=== PATIENT | female | born 1945 | race Caucasian/White ===

== ENCOUNTER 2017-04-09 18:37 | Inpatient (IN) | payer OTHER ==
[~2017-04-09] VITALS: Ht 154.9 cm; Wt 63.3 kg
[2017-04-09] MEDS ORDERED: NITROGLYCERIN 2% 1 GM OINT PKT TD STA (18:53)
[2017-04-09] MEDS ORDERED: ONDANSETRON 4 MG INJ IV STA (18:56)
[2017-04-09] MEDS ORDERED: NITROGLYCERIN (SL) 0.4 MG TAB SL PRN (19:00)
[2017-04-09 19:52] LABS: ADD SCAN DIFF NO
[2017-04-09 20:01] LABS: BASOPHILS % 0.2 % (0.0-2.0); EOSINOPHILS % 0.2 % (0.0-7.0); HEMATOCRIT 34.2 % (37.0-47.0); HEMOGLOBIN 11.3 g/dl (12.0-16.0); LYMPHOCYTES # 1.5 10^3/ul (0.8-2.9); LYMPHOCYTES % 16.1 % (15.0-51.0); MEAN CORPUSCULAR HEMOGLOBIN 27.5 pg (29.0-33.0); MEAN CORPUSCULAR VOLUME 83.2 fl (82.0-101.0); MEAN PLATELET VOLUME 10.1 fl (7.4-10.4); MONOCYTE # 0.7 10^3/ul (0.3-0.9); MONOCYTES % 7.1 % (0.0-11.0); NEUTROPHIL # 7.1 10^3/ul (1.6-7.5); NEUTROPHILS % 76.2 % (39.0-77.0); PLATELET COUNT 347 10^3/UL (140-415); RED BLOOD COUNT 4.11 10^6/ul (4.20-5.40); WHITE BLOOD COUNT 9.4 10^3/ul (4.8-10.8)
[2017-04-09 20:16] LABS: INR 0.99; PROTIME 13.1 Sec (12.2-14.2)
[2017-04-09 20:17] LABS: PARTIAL THROMBOPLASTIN TIME 31.5 Sec (25.0-35.0)
[2017-04-09 20:19] LABS: ANION GAP 14 (8-16); BLOOD UREA NITROGEN 16 mg/dl (7-20); CALCIUM 9.3 mg/dl (8.4-10.2); CARBON DIOXIDE 25 mmol/L (21-31); CHLORIDE 94 mmol/L (97-110); CREATININE 0.61 mg/dl (0.44-1.00); GLUCOSE 126 mg/dl (70-220); POTASSIUM 3.9 mmol/L (3.5-5.1); SODIUM 129 mmol/L (135-144)
[2017-04-09] MEDS ORDERED: morphine 4 MG/ML VIAL IV STA ×2 (20:20→23:55)
[2017-04-09 20:25] VITALS: TEMP 96.9
[2017-04-09] MEDS ORDERED: ONDANSETRON 4 MG INJ IV PRN (20:30)
[2017-04-09] MEDS ORDERED: ACETAMINOPHEN 325 MG TAB PO PRN ×2 (20:30→21:00)
[2017-04-09 20:31] LABS: TROPONIN-I < 0.012 ng/ml (0.00-0.12)
--- NOTE | 2017-04-09 20:37 | ERA ---
ER Documentation Chief Complaint Date/Time DATE: 04/09/17 TIME: 20:34 Chief Complaint CHEST PAIN STARTED 45MIN AGO; NITRO X 2 AND ASPIRIN 162 MG GIVEN BY EMS. HPI Patient is a 71-year-old female with coronary disease and hypertension who presents with chest pain. The patient was brought in by ambulance. She was given aspirin nitroglycerin by paramedics. The chest pain started today and is right-sided. She also mentioned that she was spitting up some blood. Upon review of old medical records this is the patient's first visit to the emergency department. ROS All systems reviewed and are negative except as per history of present illness. Allergies Allergies: Coded Allergies: No Known Allergy (Unverified , 04/09/17) PMhx/Soc Hx Neurological Disorder: No Hx Respiratory Disorders: No Hx Cardiac Disorders: Yes (HTN) Hx Psychiatric Problems: No Hx Miscellaneous Medical Probl: No Hx Alcohol Use: No Hx Substance Use: No Hx Tobacco Use: No Smoking Status: Unknown if ever smoked FmHx Family History: No diabetes Physical Exam Vitals Vital Signs Date Time Temp Pulse Resp B/P Pulse Ox O2 Delivery O2 Flow Rate FiO2 04/09/17 20:25 96.9 91 9 171/83 99 Nasal Cannula 2.0 04/09/17 19:10 Nasal Cannula 2 04/09/17 18:48 96.9 94 17 186/90 97 Physical Exam Const: Moderate distress secondary to pain Head: Atraumatic Eyes: Normal Conjunctiva ENT: Normal External Ears, Nose and Mouth. Neck: Full range of motion..~ No meningismus. Resp: Clear to auscultation bilaterally Cardio: Regular rate and rhythm, no murmurs Abd: Soft, non tender, non distended. Normal bowel sounds Skin: No petechiae or rashes Back: No midline or flank tenderness Ext: No cyanosis, or edema Neur: Awake and alert Psych: Normal Mood and Affect Result Diagram: 04/09/17193404/09/171934 Results 24 hrs Laboratory Tests Test 04/09/17 19:35 White Blood Count 9.410^3/ul Red Blood Count 4.1110^6/ul Hemoglobin 11.3g/dl Hematocrit 34.2% Mean Corpuscular Volume 83.2fl Mean Corpuscular Hemoglobin 27.5pg Mean Corpuscular Hemoglobin Concent 33.0g/dl Red Cell Distribution Width 14.0% Platelet Count 53153^3/UL Mean Platelet Volume 10.1fl Neutrophils % 76.2% Lymphocytes % 16.1% Monocytes % 7.1% Eosinophils % 0.2% Basophils % 0.2% Nucleated Red Blood Cells % 0.0/100WBC Neutrophils # 7.110^3/ul Lymphocytes # 1.510^3/ul Monocytes # 0.710^3/ul Eosinophils # 0.010^3/ul Basophils # 0.010^3/ul Nucleated Red Blood Cells # 0.010^3/ul Prothrombin Time 13.1Sec Prothrombin Time Ratio 1.0 INR International Normalized Ratio 0.99 Activated Partial Thromboplast Time 31.5Sec Sodium Level 129mmol/L Potassium Level 3.9mmol/L Chloride Level 94mmol/L Carbon Dioxide Level 25mmol/L Anion Gap 14 Blood Urea Nitrogen 16mg/dl Creatinine 0.61mg/dl Glucose Level 126mg/dl Calcium Level 9.3mg/dl Troponin I < 0.012ng/ml Current Medications Medications (Trade) Dose Ordered Sig/Daniella Route PRN Reason Start Time Stop Time Status Last Admin Dose Admin Nitroglycerin (Nitroglycerin 2% Oint) 1 inch ONCE STAT TD 04/09/17 18:53 04/09/17 18:55 DC 04/09/17 19:11 Nitroglycerin (Nitroglycerin (Sl Tab) 0.4 Mg) 1 tab Q5M UP TO 3 DOSES PRN SL CHEST PAIN 04/09/17 19:00 04/09/17 20:26 Ondansetron HCl (Zofran Inj) 4 mg ONCE STAT IV 04/09/17 18:56 04/09/17 18:58 DC 04/09/17 19:11 Morphine Sulfate (morphine) 4 mg ONCE STAT IV 04/09/17 20:20 04/09/17 20:21 DC 04/09/17 20:26 Ondansetron HCl (Zofran Inj) 4 mg ER BRIDGE PRN IV NAUSEA AND/OR VOMITING 04/09/17 20:30 04/10/17 20:29 Acetaminophen (Tylenol Tab) 650 mg ER BRIDGE PRN PO MILD PAIN/FEVER 04/09/17 20:30 04/10/17 20:29 Procedures/MDM EKG #1 read by me: Rate/Rhythm: Right bundle branch block with flipped T waves at a rate of 96 Intervals: Prolonged QTC of 507 Impression: Right bundle branch block with flipped T waves EKG #2 read by me: Rate/Rhythm: Right bundle branch block with flipped T waves at a rate of 91 Intervals: Prolonged QTC of 504 Impression: Right bundle branch block with flipped T waves Chest X-ray 1V Interpreted by me: Soft Tissue: No acute abnormalities Bones: No acute abnormalities Mediastinum/Cardiac Silhouette/Lungs: No acute abnormalities Patient is a 71-year-old female with cardiac morbidities who presents with chest pain. The patient was given aspirin and nitroglycerin as well as morphine. The patient has a negative troponin. Chest x-ray shows no obvious pneumonia or pneumothorax. At this time I doubt pulmonary embolism or aortic dissection. However given her age and comorbidities I am concerned for acute coronary syndrome. She has anemia and hyponatremia. She will be admitted to a telemetry bed under the care of Dr. Kramer from the panel team as the patient has preferred [employer] insurance. Departure Diagnosis: Primary Impression: Anemia Qualified Code: D64.9 - Anemia, unspecified type Additional Impressions: Hyponatremia Chest pain Qualified Code: R07.9 - Chest pain, unspecified type Condition: KELLY Gray MD Apr 09, 2017 20:36
[2017-04-09] MEDS ORDERED: BISACODYL (EC) 5 MG TAB PO PRN (21:00)
[2017-04-09] MEDS ORDERED: NACL 0.9% 3 ML SYG IV SCH (21:00)
[2017-04-09] MEDS ORDERED: DOCUSATE SODIUM 100 MG CAP PO PRN (21:00)
[2017-04-09] MEDS ORDERED: FAMOTIDINE 20 MG INJ IV SCH (21:00)
--- NOTE | 2017-04-09 21:00 | RADRPT ---
PROCEDURE: XR Chest. CLINICAL INDICATION: Chest pain. TECHNIQUE: Single frontal view of the chest. COMPARISON: None. FINDINGS: Cardiomegaly. Atherosclerotic calcifications in the thoracic aorta. Mild patchy air space disease at lung bases. The lungs are otherwise clear. No signs of pleural fluid or pneumothorax are seen. Th e osseous structures and soft tissues are unremarkable. IMPRESSION: Mild failure. RPTAT: [facility] Physician Zena Date Time Electronically viewed and signed by Josias Jarrett Physician on 04/09/2017 21:00 RS/
[2017-04-09] MEDS ORDERED: DILTIAZEM (SR) 90 MG CAP PO SCH (22:30)
[2017-04-09] MEDS ORDERED: LOSARTAN 50 MG TAB PO SCH (22:30)
[2017-04-09] MEDS ORDERED: traMADol 50 MG TAB PO PRN (22:30)
[2017-04-09 22:35] VITALS: PULSE 87
[2017-04-09] MEDS: FUROSEMIDE 20 MG TAB PO SCH (22:35)
[2017-04-09] MEDS ORDERED: hydrALAzine 20 MG INJ ONE (22:52)
[2017-04-09] MEDS: DILTIAZEM (SR) 90 MG CAP PO SCH (23:00)
[2017-04-09] MEDS ORDERED: hydrALAzine 20 MG INJ IV ONE (23:00)
[2017-04-09] MEDS: LOSARTAN 50 MG TAB PO SCH (23:00)
[2017-04-09] MEDS: ONDANSETRON 4 MG INJ IV PRN (23:08)
[2017-04-09] MEDS: NITROGLYCERIN (SL) 0.4 MG TAB SL PRN ×3 (23:14→23:31)
[2017-04-09 23:19] VITALS: BP 156/74; PULSE 98
--- NOTE | 2017-04-09 23:24 | HP ---
Date/Time of Note Date/Time of Note DATE: 04/09/17 TIME: 23:23 Assessment/Plan VTE Prophylaxis VTE Prophylaxis Intervention: SCD's Lines/Catheters IV Catheter Type (from [facility]): Saline Lock Assessment/Plan Chief Complaint/Hosp Course This is a 71-year-old female being admitted to the telemetry floor for: #1 chest pain: Rule out ACS versus GI etiology. Secondary to the patient's previous cardiac history as well as cardiac stents patient is a high risk for an ACS event. At the current time will trend her troponins. First set was negative. EKG did show some inverted T waves as well as right bundle branch block but no overt ST or T-wave elevations, there was also QT prolongation. Will consult cardiology. Patient is on aspirin/nitro/morphine #2 CAD: Patient has extensive previous history of hypertension as well as cardiac stents. Will consult cardiology for further treatment strategy. #3 hypertension: Continue current home medications. #4 hematemesis: Patient reports episodes of bloody vomitus. Will check a hemoglobin every 6 hours. Protonix twice daily IV. Reglan for N/V, will hold zofran secondary to QT prolongation. Will consult gastroenterology for further treatment strategy. #5 DVT and GI prophylaxis: SCDs, Protonix Further treatment strategy will be implemented as per the clinical course Problems: HPI/ROS Admit Date/Time Admit Date/Time Apr 09, 2017 at 20:30 Hx of Present Illness Chief complaint: Chest pain that started yesterday Patient is a 71-year-old female with coronary disease and hypertension who presents with chest pain. The patient was brought in by ambulance. She was given aspirin nitroglycerin by paramedics. The chest pain started today and is right-sided. She also mentioned that she was spitting up some blood. Upon my examination patient was complaining of chest pain again and was experiencing visible nausea and vomiting. She was given morphine 4 mg which provided her relief and Reglan for the nausea vomiting she subsequently improved. Stat troponin at that time was negative and an EKG was performed at that time as well which did not show any acute ST elevation changes on the EKG, there were some flipped T waves in a right bundle branch block which were very similar to the ones originally seen on EKG in the ED. She did have a QT prolongation. Allergies: NKDA Medications: See [place] Const: As per HPI Eyes : No pain discharge or redness or change in visual acuity ENT: No pain, sore throat, congestion, congestion, dysphagia or discharge Respiratory: No shortness of breath, cough, sputum, wheezing, or pleuritic pain Cardiovascular: As per HPI GI : As per HPI Genitourinary: No dysuria, hematuria, flank pain , discharge or CVA tenderness Musculoskeletal: No joint pain, back pain, neck pain, restricted range of motion in neck or joints Skin: No rash, bruising or hives Neuro: No headache, dizziness, syncope, seizure, focal weakness Endocrine: No polyuria, polydipsia, temperature intolerance Psych: No hallucination, depression, anxiety or suicidal ideation PMH/Family/Social Past Medical History Cardiac stent 2, hypertension, GERD Past Surgical History Cardiac stent 2 Family History Significant Family History: diabetes (Mom) Social History Alcohol Use: none Smoking Status: Unknown if ever smoked Drug Use: none Exam/Review of Systems Vital Signs Vitals Vital Signs Date Time Temp Pulse Resp B/P Pulse Ox O2 Delivery O2 Flow Rate FiO2 04/09/17 23:19 98 156/74 04/09/17 20:25 96.9 9 99 Nasal Cannula 2.0 Exam Exam General: Patient is sitting in bed initially was complaining of chest pain however after being given morphine she became comfortable. She also was vomiting and was given Reglan after which she was able to get some relief. HEENT: Atraumatic, normocephalic. The pupils are equal, round and reactive. Extraocular motor are intact Neck: Supple with full range of motion. No rigidity or meningismus Chest: Nontender Lungs: Clear to auscultation bilaterally no crackles rales or wheezing Heart: Normal S1-S2, Regular rhythm and rate. No overt murmurs appreciated Abdomen: Soft, mild tenderness of the epigastric region, normal bowel sounds Extremities: Normal to inspection, no edema no cyanosis Neurologic: Normal mental status, speech normal, cranial nerves II through XII are intact, motor and sensory are intact, no focal weakness Additional Comments Rate/Rhythm: Right bundle branch block with flipped T waves at a rate of 91 Intervals: Prolonged QTC of 504 Impression: Right bundle branch block with flipped T waves Labs Result Diagram: 04/09/17193404/09/171934 Medications Medications Current Medications Ondansetron HCl (Zofran Inj) 4 mg Q6H PRN IV NAUSEA AND/OR VOMITING Last administered on 04/09/17 23:08; Admin Dose 4 MG; Start 04/09/17 at 21:00 Nitroglycerin (Nitroglycerin (Sl Tab) 0.4 Mg) 1 tab Q5M PRN SL CHEST PAIN Last administered on 04/09/17 23:14; Admin Dose 1 TAB; Start 04/09/17 at 21:00 Acetaminophen (Tylenol Tab) 650 mg Q6H PRN PO PAIN LEVEL 1-3 OR FEVER; Start at 21:00 Morphine Sulfate (morphine) 2 mg Q4H PRN IV PAIN LEVEL 7-10; Start 04/09/17 at 21:00 Docusate Sodium (Colace) 100 mg Q12H PRN PO CONSTIPATION; Start 04/09/17 at 21: 00 Bisacodyl (Dulcolax) 5 mg DAILY PRN PO CONSTIPATION; Start 04/09/17 at 21:00 Famotidine (Pepcid Iv) 20 mg DAILY IV Last administered on 04/09/17 21:22; Admin Dose 20 MG; Start 04/09/17 at 21:00 Tramadol HCl (Ultram) 50 mg Q6 PRN PO pain; Start 04/09/17 at 22:30 Furosemide (Lasix) 10 mg DAILY PO ; Start 04/09/17 at 22:35 Aspirin (Aspirin) 81 mg DAILY PO ; Start 04/10/17 at 09:00 Diltiazem HCl (Cardizem Sr) 90 mg DAILY PO ; Start 04/09/17 at 23:00 Losartan Potassium (Cozaar) 100 mg DAILY PO ; Start 04/09/17 at 23:00 Potassium Chloride (Klor-Con 10) 10 meq DAILY PO ; Start 04/10/17 at 09:00 Atorvastatin Calcium (Lipitor) 20 mg HS PO ; Start 04/10/17 at 21:00 LEYDI CANO Apr 09, 2017 23:24
[2017-04-09] MEDS: morphine 2 MG INJ IV PRN (23:27)
[2017-04-10] VITALS (12 sets, daily range): BP systolic 119–159; BP diastolic 56–75; PULSE 81–105; RESP 17–20; Ht 154.9 cm; Wt 63.3 kg
[2017-04-10] MEDS ORDERED: ASPI-664 PO (00:21)
[2017-04-10] MEDS: ONDANSETRON 4 MG INJ IV PRN (00:27)
[2017-04-10] MEDS ORDERED: ONDANSETRON 4 MG INJ IV PRN (00:30)
[2017-04-10] MEDS: METOCLOPRAMIDE 10 MG INJ IV PRN ×2 (00:46→07:32)
[2017-04-10] MEDS ORDERED: SOD CHLORIDE 0.9% 1,000 ML IV ONE (01:00)
[2017-04-10] MEDS ORDERED: PANTOPRAZOLE 40 MG INJ IV ONE (01:00)
[2017-04-10 01:28] LABS: CREATINE KINASE 88 IU/L (23-200)
[2017-04-10 01:42] LABS: CK-MB 1.61 ng/ml (0.0-2.4)
[2017-04-10 01:43] LABS: TROPONIN-I < 0.012 ng/ml (0.00-0.12)
[2017-04-10] MEDS ORDERED: PANTOPRAZOLE 40 MG INJ IV SCH (06:00)
[2017-04-10] MEDS ORDERED: hydrALAzine 20 MG INJ IV PRN (06:00)
[2017-04-10] MEDS ORDERED: FURO20TA3 PO (06:59)
[2017-04-10] MEDS ORDERED: DILT180C94 PO (06:59)
[2017-04-10] MEDS ORDERED: ATOR20TA38 PO (06:59)
[2017-04-10] MEDS ORDERED: LOSA100T7 PO (07:02)
[2017-04-10] MEDS ORDERED: POTA10TA98 PO (07:02)
[2017-04-10] MEDS ORDERED: POTA10TA97 PO (07:07)
[2017-04-10] MEDS: morphine 4 MG/ML VIAL IV PRN ×2 (07:23→17:44)
[2017-04-10 07:57] LABS: ADD SCAN DIFF NO
[2017-04-10 08:12] LABS: BASOPHILS % 0.2 % (0.0-2.0); HEMATOCRIT 35.5 % (37.0-47.0); HEMOGLOBIN 11.6 g/dl (12.0-16.0); LYMPHOCYTES % 8.2 % (15.0-51.0); MEAN CORPUSCULAR HEMOGLOBIN 27.6 pg (29.0-33.0); MEAN CORPUSCULAR HGB CONC 32.7 g/dl (32.0-37.0); MEAN CORPUSCULAR VOLUME 84.3 fl (82.0-101.0); MEAN PLATELET VOLUME 9.7 fl (7.4-10.4); MONOCYTE # 0.7 10^3/ul (0.3-0.9); MONOCYTES % 6.1 % (0.0-11.0); NEUTROPHIL # 10.2 10^3/ul (1.6-7.5); NEUTROPHILS % 84.8 % (39.0-77.0); PLATELET COUNT 336 10^3/UL (140-415); RED BLOOD COUNT 4.21 10^6/ul (4.20-5.40); RED CELL DISTRIBUTION WIDTH 14.1 % (11.5-14.5)
[2017-04-10 08:32] LABS: ALBUMIN 4.3 g/dl (3.3-4.9); ALBUMIN/GLOBULIN RATIO 1.48; BILIRUBIN,INDIRECT 0.2 mg/dl (0-1.1); BILIRUBIN,TOTAL 0.2 mg/dl (0.2-1.3); CALCIUM 9.3 mg/dl (8.4-10.2); CHOL/HDL RATIO 2.9 RATIO; CREATININE 0.55 mg/dl (0.44-1.00); MAGNESIUM 1.9 mg/dl (1.7-2.5); POTASSIUM 3.8 mmol/L (3.5-5.1); TOTAL PROTEIN 7.2 g/dl (6.1-8.1)
[2017-04-10 08:39] LABS: CK-MB 3.51 ng/ml (0.0-2.4)
[2017-04-10 08:44] LABS: TROPONIN-I 0.111 ng/ml (0.00-0.12)
[2017-04-10] MEDS: ASPIRIN 81 MG TAB PO SCH (08:49)
[2017-04-10] MEDS: LOSARTAN 50 MG TAB PO SCH (08:49)
[2017-04-10] MEDS: POTASSIUM CHLORIDE (SR) 10 MEQ TAB PO SCH (08:49)
[2017-04-10] MEDS: FUROSEMIDE 20 MG TAB PO SCH (08:50)
[2017-04-10] MEDS: DILTIAZEM (SR) 90 MG CAP PO SCH (08:50)
[2017-04-10 08:56] LABS: THYROID STIMULATING HORMONE 1.46 MIU/L (0.465-4.680)
[2017-04-10] MEDS ORDERED: ASPIRIN 81 MG TAB PO SCH ×2 (09:00)
[2017-04-10] MEDS ORDERED: POTASSIUM CHLORIDE (SR) 10 MEQ TAB PO SCH (09:00)
--- NOTE | 2017-04-10 09:56 | CONS ---
Date/Time of Note Date/Time of Note DATE: 04/10/17 TIME: 09:49 Assessment/Plan Assessment/Plan Chief Complaint/Hosp Course Chest pain/hematemesis: In setting of emesis, then chest pain, then hematemesis , would be concerned for jazmin arenas tear. Hgb stable. I do not think this is cardiac. Trops negative as well. Systolic murmur: r/o . Doubt severe CAD s/p PCI 5yrs ago HTN -f/u echo -if no severe , ok to proceed with EGD -ok to hold ASA if needed -continue diltiazem, cozaar Problems: Consultation Date/Type/Reason Admit Date/Time Apr 09, 2017 at 20:30 Date of Consultation: Apr 10, 2017 Type of Consultation: Cardiology Reason for Consultation Chest pain Referring Provider: LEYDI CANO Hx of Present Illness 71 yo F with a h/o CAD s/p PCI (5yrs ago in [place]), who presented with chest pain. A language line rn mds was used (speaks Ed). The pt notes that yesterday am she was not feeling well and had 2 episodes of nonbloody emesis. She was feeling very weak so she layed down and slept. When she woke up she was having chest pain and had "blood in her mouth". She then had grossly bloody emesis. Since then she has been having ongoing chest discomfort. No SOB. No abdominal pain. per HPI Past Medical History CAD s/p PCI Social History Alcohol Use: none Smoking Status: Never smoker Drug Use: none Exam/Review of Systems Vital Signs Vitals Vital Signs Date Time Temp Pulse Resp B/P Pulse Ox O2 Delivery O2 Flow Rate FiO2 04/10/17 07:43 98.0 113 19 135/65 96 04/10/17 01:00 Nasal Cannula 2.0 Intake and Output 04/09/17 04/09/17 04/10/17 15:00 23:00 07:00 Intake Total 100 ml Balance 100 ml Exam Constitutional: alert, oriented Psych: nl mood/affect, no complaints Head: atraumatic, normocephalic Neck: No jvd Respiratory: crackles/rales (mild at bases ), No clear to auscultation Cardiovascular: regular rate and rhythm, systolic murmur (3/6 mid peaking ), No edema Gastrointestinal: non-tender, soft Extremities: normal pulses Neurological: nl mental status, nl speech Results EKG: sinus, RBBB, inferior TW changes Result Diagram: 04/10/17 0714 04/09/17 1935 Results 24 hrs Laboratory Tests Test 04/09/17 19:35 04/10/17 00:50 04/10/17 07:14 White Blood Count 9.4 12.0 #H Red Blood Count 4.11 L 4.21 Hemoglobin 11.3 L 11.6 L Hematocrit 34.2 L 35.5 L Mean Corpuscular Volume 83.2 84.3 Mean Corpuscular Hemoglobin 27.5 L 27.6 L Mean Corpuscular Hemoglobin Concent 33.0 32.7 Red Cell Distribution Width 14.0 14.1 Platelet Count 347 336 Mean Platelet Volume 10.1 9.7 Neutrophils % 76.2 84.8 H Lymphocytes % 16.1 8.2 L Monocytes % 7.1 6.1 Eosinophils % 0.2 0.0 Basophils % 0.2 0.2 Nucleated Red Blood Cells % 0.0 0.0 Neutrophils # 7.1 10.2 H Lymphocytes # 1.5 1.0 Monocytes # 0.7 0.7 Eosinophils # 0.0 0.0 Basophils # 0.0 0.0 Nucleated Red Blood Cells # 0.0 0.0 Prothrombin Time 13.1 Prothrombin Time Ratio 1.0 INR International Normalized Ratio 0.99 Activated Partial Thromboplast Time 31.5 Sodium Level 129 L 126 L Potassium Level 3.9 3.8 Chloride Level 94 L 94 L Carbon Dioxide Level 25 26 Anion Gap 14 10 Blood Urea Nitrogen 16 13 Creatinine 0.61 0.55 Glucose Level 126 127 Calcium Level 9.3 9.3 Troponin I < 0.012 < 0.012 0.111 Creatine Kinase 88 103 Creatine Kinase Index 1.8 3.4 Creatinine Kinase MB (Mass) 1.61 3.51 H Hemoglobin A1c 6.1 H Magnesium Level 1.9 Total Bilirubin 0.2 Direct Bilirubin 0.00 Indirect Bilirubin 0.2 Aspartate Amino Transf (AST/SGOT) 29 Alanine Aminotransferase (ALT/SGPT) 34 Alkaline Phosphatase 114 Total Protein 7.2 Albumin 4.3 Globulin 2.90 Albumin/Globulin Ratio 1.48 Triglycerides Level 88 Cholesterol Level 178 LDL Cholesterol, Calculated 99 HDL Cholesterol 61 Cholesterol/HDL Ratio 2.9 Thyroid Stimulating Hormone (TSH) 1.460 Medications Medications Current Medications Nitroglycerin (Nitroglycerin (Sl Tab) 0.4 Mg) 1 tab Q5M PRN SL CHEST PAIN Last administered on 04/09/17 23:31; Admin Dose 1 TAB; Start 04/09/17 at 21:00 Acetaminophen (Tylenol Tab) 650 mg Q6H PRN PO PAIN LEVEL 1-3 OR FEVER; Start at 21:00 Morphine Sulfate (morphine) 2 mg Q4H PRN IV PAIN LEVEL 7-10 Last administered on 04/09/17 23:27; Admin Dose 2 MG; Start 04/09/17 at 21:00 Docusate Sodium (Colace) 100 mg Q12H PRN PO CONSTIPATION; Start 04/09/17 at 21: 00 Bisacodyl (Dulcolax) 5 mg DAILY PRN PO CONSTIPATION; Start 04/09/17 at 21:00 Famotidine (Pepcid Iv) 20 mg DAILY IV Last administered on 04/09/17 21:22; Admin Dose 20 MG; Start 04/09/17 at 21:00 Tramadol HCl (Ultram) 50 mg Q6 PRN PO pain; Start 04/09/17 at 22:30 Furosemide (Lasix) 10 mg DAILY PO ; Start 04/09/17 at 22:35 Aspirin (Aspirin) 81 mg DAILY PO ; Start 04/10/17 at 09:00 Diltiazem HCl (Cardizem Sr) 90 mg DAILY PO ; Start 04/09/17 at 23:00 Losartan Potassium (Cozaar) 100 mg DAILY PO ; Start 04/09/17 at 23:00 Potassium Chloride (Klor-Con 10) 10 meq DAILY PO ; Start 04/10/17 at 09:00 Atorvastatin Calcium (Lipitor) 20 mg HS PO ; Start 04/10/17 at 21:00 Morphine Sulfate (morphine) 4 mg Q3H PRN IV CHEST PAIN Last administered on 07:23; Admin Dose 4 MG; Start 04/10/17 at 00:30 Ondansetron HCl (Zofran Inj) 4 mg Q4H PRN IV NAUSEA AND/OR VOMITING; Start 08/17 at 00:30 Metoclopramide HCl (Reglan) 10 mg Q4H PRN IV vomiting Last administered on 04/10 07:32; Admin Dose 10 MG; Start 04/10/17 at 01:00 Pantoprazole (Protonix Iv) 40 mg DAILY@06 IV Last administered on 04/10/17 05: 46; Admin Dose 40 MG; Start 04/10/17 at 06:00 Hydralazine HCl (Apresoline) 10 mg Q6H PRN IV SBP > 170 Last administered on 05:47; Admin Dose 10 MG; Start 04/10/17 at 06:00 CELESTE MC Apr 10, 2017 09:56
--- NOTE | 2017-04-10 10:05 | RADRPT ---
Echocardiogram Report Patient Name: JAZZ ULLOA Gender: Female Date: 1945 Study Date: 10-Apr-2017 Systems Analyst Developer: Isha Sawyer [facility] Location: [id number] Ref. Physician: LEYDI CANO Quality: Good Procedures: Transthoracic echocardiogram with complete 2D, M-Mode, and doppler examination. Indications: Chest Pain. 2D/M Mode Doppler Measurement Value Normal Ranges Measurement Value Normal Ranges LVIDd 2D 3.5 3.5 - 5.6 cm DIONNE Vmax 1.5 cm2 LVIDs 2D 1.9 2.1 - 4.1 cm DIONNE VTI 1.5 cm2 LVPWd 2D 1.2 0.6 - 1.1 cm AV Mean John 2.1 m/sec IVSd 2D 1.3 0.6 - 1.1 cm AV Mean PG 20.7 mmHg AoR Diam 2D 2.4 2.0 - 3.7 cm AV Peak John 3.1 m/sec EDV 2D 51.4 cm3 AV Peak PG 37.9 mmHg ESV 2D 7.1 cm3 AV VTI 52.7 cm LA Dimen 2D 2.8 2.3 - 4.0 cm LVOT Mean John 1.5 m/sec LVOT Diam 1.8 cm LVOT Mean PG 9.1 mmHg LVOT Peak John 1.8 m/sec LVOT Peak PG 13.3 mmHg LVOT VTI 43.7 cm MV E Peak John 0.9 m/sec MV A Peak John 1.4 m/sec MV E/A 0.7 MV Decel Time 65 msec MV Decel [place] 14 MV E/A 0.7 TR Peak John 3.0 m/sec TR Peak PG 35.1 mmHg RVSP 38.0 mmHg Findings Left Ventricle: Normal left ventricular systolic function. Normal left ventricular cavity size. Mild concentric left ventricular hypertrophy. Ejection fraction is visually estimated at 70 %. Tissue Doppler/Mitral Doppler indices are consistent with impaired relaxation (Stage I diastolic dysfunction). Right Ventricle: Normal right ventricular size. Normal right ventricular systolic function. Left Atrium: The left atrium is normal in size. Right Atrium: The right atrium is normal in size. Mitral Valve: Mild mitral valve regurgitation. Aortic Valve: Mild to moderate aortic stenosis. Aortic valve Max velocity 3.08 m/sec. Max PG 37.90 mmHg. Mean PG 20.70 mmHg. Aortic valve area 2.10 cm2. Aortic cusps appear mildly calcified. Trace aortic valve regurgitation. Tricuspid Valve: Normal appearance of the tricuspid valve. Estimated peak PA systolic pressure 38 mmHg. There is mild tricuspid regurgitation. Pulmonic Valve: Normal pulmonic valve appearance. Pericardium: Normal pericardium with no significant pericardial effusion. Aorta: Normal aortic root. IVC: Normal size and normal respiratory collapse consistent with normal right atrial pressure. Conclusions Hyperdynamic left ventricular systolic function. Normal left ventricular cavity size. Mild concentric left ventricular hypertrophy. Ejection fraction is visually estimated at 70 %. Tissue Doppler/Mitral Doppler indices are consistent with impaired relaxation (Stage I diastolic dysfunction). Mild to moderate aortic stenosis. Aortic valve Max velocity 3.08 m/sec. Max PG 37.90 mmHg. Mean PG 20.70 mmHg. Part of the gradient may be from the hyperdynamic LV function though no clear LVOT obstruction is seen. Estimated peak PA systolic pressure 38 mmHg based on RA pressure of 3 mmHg. Electronically Signed By: Apollo Lewis 10-Apr-2017 10:04:36 -0700 Patient Name: JAZZ ULLOA Study Date: 10-Apr-2017 [id number]
--- NOTE | 2017-04-10 12:40 | PN ---
Date/Time of Note Date/Time of Note DATE: 04/10/17 TIME: 12:39 Assessment/Plan VTE Prophylaxis VTE Prophylaxis Intervention: SCD's Lines/Catheters IV Catheter Type (from Nrs): Saline Lock Urinary Cath still in place: No Assessment/Plan Assessment/Plan 71 yo F presented with epigastric pain and chest discomfort #epigastric pain: PUD v MW tear v other -GI to do EGD today #chest pain: likely 2/2 above per cardiology TTE results noted, EF preserved, +mild/mod cont home BP meds and asa dispo pending GI eval Subjective 24 Hr Interval Summary Free Text/Dictation Ed language line used to facilitate communication Pt wondering when she'll be able to eat. Exam/Review of Systems Vital Signs Vitals Vital Signs Date Time Temp Pulse Resp B/P Pulse Ox O2 Delivery O2 Flow Rate FiO2 04/10/17 11:50 98.0 94 19 147/70 96 04/10/17 07:40 Nasal Cannula 2.0 Intake and Output 04/09/17 04/09/17 04/10/17 15:00 23:00 07:00 Intake Total 100 ml Balance 100 ml Exam nad ,pleasant rrr lungs clear abd soft no rashes Results Result Diagram: 04/10/1714 04/10/17713 Results 24 hrs Laboratory Tests Test 04/09/17 19:35 04/10/17 00:50 04/10/17 07:14 White Blood Count 9.4 12.0 #H Red Blood Count 4.11 L 4.21 Hemoglobin 11.3 L 11.6 L Hematocrit 34.2 L 35.5 L Mean Corpuscular Volume 83.2 84.3 Mean Corpuscular Hemoglobin 27.5 L 27.6 L Mean Corpuscular Hemoglobin Concent 33.0 32.7 Red Cell Distribution Width 14.0 14.1 Platelet Count 347 336 Mean Platelet Volume 10.1 9.7 Neutrophils % 76.2 84.8 H Lymphocytes % 16.1 8.2 L Monocytes % 7.1 6.1 Eosinophils % 0.2 0.0 Basophils % 0.2 0.2 Nucleated Red Blood Cells % 0.0 0.0 Neutrophils # 7.1 10.2 H Lymphocytes # 1.5 1.0 Monocytes # 0.7 0.7 Eosinophils # 0.0 0.0 Basophils # 0.0 0.0 Nucleated Red Blood Cells # 0.0 0.0 Prothrombin Time 13.1 Prothrombin Time Ratio 1.0 INR International Normalized Ratio 0.99 Activated Partial Thromboplast Time 31.5 Sodium Level 129 L 126 L Potassium Level 3.9 3.8 Chloride Level 94 L 94 L Carbon Dioxide Level 25 26 Anion Gap 14 10 Blood Urea Nitrogen 16 13 Creatinine 0.61 0.55 Glucose Level 126 127 Calcium Level 9.3 9.3 Troponin I < 0.012 < 0.012 0.111 Creatine Kinase 88 103 Creatine Kinase Index 1.8 3.4 Creatinine Kinase MB (Mass) 1.61 3.51 H Hemoglobin A1c 6.1 H Magnesium Level 1.9 Total Bilirubin 0.2 Direct Bilirubin 0.00 Indirect Bilirubin 0.2 Aspartate Amino Transf (AST/SGOT) 29 Alanine Aminotransferase (ALT/SGPT) 34 Alkaline Phosphatase 114 Total Protein 7.2 Albumin 4.3 Globulin 2.90 Albumin/Globulin Ratio 1.48 Triglycerides Level 88 Cholesterol Level 178 LDL Cholesterol, Calculated 99 HDL Cholesterol 61 Cholesterol/HDL Ratio 2.9 Thyroid Stimulating Hormone (TSH) 1.460 Medications Medications Current Medications Nitroglycerin (Nitroglycerin (Sl Tab) 0.4 Mg) 1 tab Q5M PRN SL CHEST PAIN Last administered on 04/09/17 23:31; Admin Dose 1 TAB; Start 04/09/17 at 21:00 Acetaminophen (Tylenol Tab) 650 mg Q6H PRN PO PAIN LEVEL 1-3 OR FEVER; Start at 21:00 Morphine Sulfate (morphine) 2 mg Q4H PRN IV PAIN LEVEL 7-10 Last administered on 04/09/17 23:27; Admin Dose 2 MG; Start 04/09/17 at 21:00 Docusate Sodium (Colace) 100 mg Q12H PRN PO CONSTIPATION; Start 04/09/17 at 21: 00 Bisacodyl (Dulcolax) 5 mg DAILY PRN PO CONSTIPATION; Start 04/09/17 at 21:00 Tramadol HCl (Ultram) 50 mg Q6 PRN PO pain; Start 04/09/17 at 22:30 Furosemide (Lasix) 10 mg DAILY PO Last administered on 04/10/17 08:50; Admin Dose 10 MG; Start 04/09/17 at 22:35 Aspirin (Aspirin) 81 mg DAILY PO Last administered on 04/10/17 08:49; Admin Dose 81 MG; Start 04/10/17 at 09:00 Diltiazem HCl (Cardizem Sr) 90 mg DAILY PO Last administered on 04/10/17 08:50 ; Admin Dose 90 MG; Start 04/09/17 at 23:00 Losartan Potassium (Cozaar) 100 mg DAILY PO Last administered on 04/10/17 08: 49; Admin Dose 100 MG; Start 04/09/17 at 23:00 Potassium Chloride (Klor-Con 10) 10 meq DAILY PO Last administered on 08:49; Admin Dose 10 MEQ; Start 04/10/17 at 09:00 Atorvastatin Calcium (Lipitor) 20 mg HS PO ; Start 04/10/17 at 21:00 Morphine Sulfate (morphine) 4 mg Q3H PRN IV CHEST PAIN Last administered on 07:23; Admin Dose 4 MG; Start 04/10/17 at 00:30 Ondansetron HCl (Zofran Inj) 4 mg Q4H PRN IV NAUSEA AND/OR VOMITING; Start 08/17 at 00:30 Metoclopramide HCl (Reglan) 10 mg Q4H PRN IV vomiting Last administered on 04/10 07:32; Admin Dose 10 MG; Start 04/10/17 at 01:00 Procedures Procedures TTE results reviewed Conclusions Hyperdynamic left ventricular systolic function. Normal left ventricular cavity size. Mild concentric left ventricular hypertrophy. Ejection fraction is visually estimated at 70 %. Tissue Doppler/Mitral Doppler indices are consistent with impaired relaxation (Stage I diastolic dysfunction). Mild to moderate aortic stenosis. Aortic valve Max velocity 3.08 m/sec. Max PG 37.90 mmHg. Mean PG 20.70 mmHg. Part of the gradient may be from the hyperdynamic LV function though no clear LVOT obstruction is seen. Estimated peak PA systolic pressure 38 mmHg based on RA pressure of 3 mmHg. NOEL BUNN MD Apr 10, 2017 12:40
--- NOTE | 2017-04-10 15:58 | CONS ---
Date/Time of Note Date/Time of Note DATE: 04/10/17 TIME: 15:43 Assessment/Plan Assessment/Plan Additional Assessment/Plan Assessment * Chest pain ACS vs GI pathology * Hematemesis Plan * EGD risks and benefit explained to the patient and agreed with the planned procedure (translated in Farsi by traslator of the hospital0 * continue present medications Consultation Date/Type/Reason Admit Date/Time Apr 09, 2017 at 20:30 Date of Consultation: Apr 10, 2017 Type of Consultation: gastroenterology Reason for Consultation spitting of blood/atypical chest pain Referring Provider: NOEL BUNN MD Hx of Present Illness 71 year old female with past medical history CABG ,hypertension presented in the emergency room because of chest pain.Present condition started as sudden onset chest pain,,localized ,non radiating. She denies nausea nor vomiting but complain of minimal hematemesis Emergency room course revealed troponin <0.012 to 0.361.Patient was evaluated by cardiology ,thinks its more of GI pathology.Presently patient denies any chest pain nor hematemesis.We have spoke with the patient through a hematology specialist and explained the planned to do EGD today and agreed with the planned procedure, We have also called her son and left a message regarding the planned procedure. Psychological: nl mood/affect, no complaints Past Medical History Medical History: coronary artery disease, hypertension Past Surgical History Past Surgical Hx: no surgical history Family History Significant Family History: no pertinent family hx Social History Alcohol Use: none Smoking Status: Never smoker Drug Use: none Exam/Review of Systems Vital Signs Vitals Vital Signs Date Time Temp Pulse Resp B/P Pulse Ox O2 Delivery O2 Flow Rate FiO2 04/10/17 15:35 97.9 92 19 159/75 96 04/10/17 07:40 Nasal Cannula 2.0 Intake and Output 04/09/17 04/09/17 04/10/17 15:00 23:00 07:00 Intake Total 100 ml Balance 100 ml Exam Constitutional: alert, oriented Eyes: nl conjunctiva Neck: non-tender, supple Respiratory: clear to auscultation, normal air movement Cardiovascular: nl pulses, regular rate and rhythm Gastrointestinal: nl liver, spleen, non-tender, soft Musculoskeletal: nl extremities to inspection, nl gait and stance Extremities: normal pulses Neurological: nl speech, nl strength Skin: nl turgor, No rash or lesions Lymph: nl lymph nodes Results Result Diagram: 04/10/17 1222 04/10/17 0714 Results 24 hrs Laboratory Tests Test 04/09/17 19:35 04/10/17 00:50 04/10/17 07:14 04/10/17 12:22 White Blood Count 9.4 12.0 #H Red Blood Count 4.11 L 4.21 Hemoglobin 11.3 L 11.6 L 11.0 L Hematocrit 34.2 L 35.5 L 34.0 L Mean Corpuscular Volume 83.2 84.3 Mean Corpuscular Hemoglobin 27.5 L 27.6 L Mean Corpuscular Hemoglobin Concent 33.0 32.7 Red Cell Distribution Width 14.0 14.1 Platelet Count 347 336 Mean Platelet Volume 10.1 9.7 Neutrophils % 76.2 84.8 H Lymphocytes % 16.1 8.2 L Monocytes % 7.1 6.1 Eosinophils % 0.2 0.0 Basophils % 0.2 0.2 Nucleated Red Blood Cells % 0.0 0.0 Neutrophils # 7.1 10.2 H Lymphocytes # 1.5 1.0 Monocytes # 0.7 0.7 Eosinophils # 0.0 0.0 Basophils # 0.0 0.0 Nucleated Red Blood Cells # 0.0 0.0 Prothrombin Time 13.1 Prothrombin Time Ratio 1.0 INR International Normalized Ratio 0.99 Activated Partial Thromboplast Time 31.5 Sodium Level 129 L 126 L Potassium Level 3.9 3.8 Chloride Level 94 L 94 L Carbon Dioxide Level 25 26 Anion Gap 14 10 Blood Urea Nitrogen 16 13 Creatinine 0.61 0.55 Glucose Level 126 127 Calcium Level 9.3 9.3 Troponin I < 0.012 < 0.012 0.111 0.361 *H Osmolality 278 L Creatine Kinase 88 103 Creatine Kinase Index 1.8 3.4 Creatinine Kinase MB (Mass) 1.61 3.51 H Hemoglobin A1c 6.1 H Magnesium Level 1.9 Total Bilirubin 0.2 Direct Bilirubin 0.00 Indirect Bilirubin 0.2 Aspartate Amino Transf (AST/SGOT) 29 Alanine Aminotransferase (ALT/SGPT) 34 Alkaline Phosphatase 114 Total Protein 7.2 Albumin 4.3 Globulin 2.90 Albumin/Globulin Ratio 1.48 Triglycerides Level 88 Cholesterol Level 178 LDL Cholesterol, Calculated 99 HDL Cholesterol 61 Cholesterol/HDL Ratio 2.9 Thyroid Stimulating Hormone (TSH) 1.460 Random Cortisol 39.9 Medications Medications Current Medications Nitroglycerin (Nitroglycerin (Sl Tab) 0.4 Mg) 1 tab Q5M PRN SL CHEST PAIN Last administered on 04/09/17 23:31; Admin Dose 1 TAB; Start 04/09/17 at 21:00 Acetaminophen (Tylenol Tab) 650 mg Q6H PRN PO PAIN LEVEL 1-3 OR FEVER; Start at 21:00 Morphine Sulfate (morphine) 2 mg Q4H PRN IV PAIN LEVEL 7-10 Last administered on 04/09/17 23:27; Admin Dose 2 MG; Start 04/09/17 at 21:00 Docusate Sodium (Colace) 100 mg Q12H PRN PO CONSTIPATION; Start 04/09/17 at 21: 00 Bisacodyl (Dulcolax) 5 mg DAILY PRN PO CONSTIPATION; Start 04/09/17 at 21:00 Tramadol HCl (Ultram) 50 mg Q6 PRN PO pain; Start 04/09/17 at 22:30 Furosemide (Lasix) 10 mg DAILY PO Last administered on 04/10/17 08:50; Admin Dose 10 MG; Start 04/09/17 at 22:35 Aspirin (Aspirin) 81 mg DAILY PO Last administered on 04/10/17 08:49; Admin Dose 81 MG; Start 04/10/17 at 09:00 Diltiazem HCl (Cardizem Sr) 90 mg DAILY PO Last administered on 04/10/17 08:50 ; Admin Dose 90 MG; Start 04/09/17 at 23:00 Losartan Potassium (Cozaar) 100 mg DAILY PO Last administered on 04/10/17 08: 49; Admin Dose 100 MG; Start 04/09/17 at 23:00 Potassium Chloride (Klor-Con 10) 10 meq DAILY PO Last administered on 08:49; Admin Dose 10 MEQ; Start 04/10/17 at 09:00 Atorvastatin Calcium (Lipitor) 20 mg HS PO ; Start 04/10/17 at 21:00 Morphine Sulfate (morphine) 4 mg Q3H PRN IV CHEST PAIN Last administered on 07:23; Admin Dose 4 MG; Start 04/10/17 at 00:30 Ondansetron HCl (Zofran Inj) 4 mg Q4H PRN IV NAUSEA AND/OR VOMITING; Start 08/17 at 00:30 Metoclopramide HCl (Reglan) 10 mg Q4H PRN IV vomiting Last administered on 04/10t 07:32; Admin Dose 10 MG; Start 04/10/17 at 01:00 DENISE MASON MD Apr 10, 2017 15:53
--- NOTE | 2017-04-10 17:16 | RADRPT ---
Vent Rate: 92 bpm RR Interval: 0 msec IL Interval: 174 msec QRS Duration: 150 msec QT Interval: 430 msec QTC Interval: 531 msec P-R-T Holcomb: 64 - 81 - -14 degrees Normal sinus rhythm Right bundle branch block T wave abnormality, consider inferolateral ischemia Abnormal ECG Electronically Signed By: Dg Morelos [id number]
[2017-04-10] MEDS: NITROGLYCERIN (SL) 0.4 MG TAB SL PRN ×3 (17:25→17:54)
[2017-04-10] MEDS ORDERED: morphine 2 MG INJ IV STA ×2 (18:10→18:11)
--- NOTE | 2017-04-10 18:24 | QN ---
Documentation Comment Patient was brought down to the GI lab for endoscopic examination. She had been cleared by cardiology. While being evaluated in the GI lab patient complained of significant chest pain and Dr. Hawkins attending anesthesiologist felt concern and canceled the procedure. The patient was sent back to her room and hospitalist was notified to further assess the patient. GI klein the patient appears stable and endoscopy will have to be deferred until patient is stabilized from the cardiac point of view DENISE MASON MD Apr 10, 2017 18:24
[2017-04-10 19:02] LABS: HEMATOCRIT 35.9 % (37.0-47.0); HEMOGLOBIN 11.5 g/dl (12.0-16.0)
[2017-04-10] MEDS ORDERED: SOD CHLORIDE 0.9% 100 ML ONE (19:24)
[2017-04-10] MEDS ORDERED: IOHEXOL 100 ML ONE (19:24)
[2017-04-10] MEDS ORDERED: IOHEXOL 350MG/ML 50 ML BTL ONE (19:24)
[2017-04-10] MEDS ORDERED: ATORVASTATIN 10 MG TAB PO SCH (21:00)
[2017-04-10] MEDS: ATORVASTATIN 20 MG TAB PO SCH (21:33)
--- NOTE | 2017-04-10 23:32 | RADRPT ---
PROCEDURE: CTA CHEST WITH CONTRAST CLINICAL INDICATION: 71-year-old female with chest pain and hematemesis versus hemoptysis. TECHNIQUE: The study was performed utilizing a GE slinksetpeed VCT 64-slice CT scanner. Direct axi al sections were obtained from the thoracic inlet through the chest to the upper abdomen with a bolu s injection of 80 cc of Omnipaque 350 nonionic contrast material. Sagittal, coronal and maximal inte nsity projections re-formations were obtained. One or more of the following dose reduction technique s were utilized: automated exposure control, adjustment of the mA and/or kV according to patient's s ize or use of iterative reconstruction technique. The images were reviewed on a PACS workstation. C TD/vol = 38.9 mGy; Total Exam DLP = 301.7 mGy-cm. COMPARISON: None. FINDINGS: The aorta is mildly calcified but without aneurysmal dilatation or dissection. Mild cardiomegaly is noted. There are small lymph nodes seen within the mediastinum which are not pathologic by size crit eria. The central pulmonary arteries are without evidence for filling defect to suggest pulmonary em bolus or thrombus. There is mild bibasilar enhancing subsegmental atelectasis. There is no evidence for focal consolidation. There is no evidence for a pneumothorax. No abnormal soft tissue masses or nodular densities are visualized. Mild degenerative changes are present throughout the spine. Scans through the upper abdomen reveals that the upper liver is unremarkable. The adrenal glands hav e a normal appearance. The upper kidneys are functional and are without evidence for obstruction. T here appears to be a cortical thinning within the upper pole of the right kidney with mild irregular contrast enhancement and minimal perinephric infiltration. IMPRESSION: 1. No CTA evidence for thoracic aortic aneurysm/dissection or central pulmonary embolus. 2. Mild bilateral enhancing basilar subsegmental atelectasis. 3. Right upper pole renal cortical thinning with irregular contrast enhancement and minimal perinep hric infiltration. This may represent scarring however pyelonephritis cannot be excluded. Clinical correlation is necessary. Note that the right kidney was not completely scanned through. 4. Mild degenerative changes within the spine. .Joseph Otoole MD, MD Date Time Electronically viewed and signed by .Joseph Otoole MD, on 04/10/2017 23:31 .[place]
[2017-04-11] VITALS (23 sets, daily range): BP systolic 132–184; BP diastolic 57–83; PULSE 72–108; RESP 18–26
[2017-04-11] MEDS: NITROGLYCERIN (SL) 0.4 MG TAB SL PRN (01:06)
[2017-04-11] MEDS: morphine 4 MG/ML VIAL IV PRN (01:16)
[2017-04-11] MEDS ORDERED: MEROPENEM 1 GM/100 ML (PMX) 100 ML IVPB SCH (02:15)
[2017-04-11] MEDS: ASPIRIN 81 MG TAB PO SCH (08:12)
[2017-04-11] MEDS: DILTIAZEM (SR) 90 MG CAP PO SCH (08:13)
[2017-04-11] MEDS: LOSARTAN 50 MG TAB PO SCH (08:13)
[2017-04-11] MEDS: POTASSIUM CHLORIDE (SR) 10 MEQ TAB PO SCH (08:14)
[2017-04-11] MEDS ORDERED: METOPROLOL 50 MG TAB PO SCH (09:00)
[2017-04-11 09:37] LABS: ADD UMIC YES; UR ASCORBIC ACID NEGATIVE (NEGATIVE); UR BILIRUBIN (Dip) NEGATIVE (NEGATIVE); UR BLOOD (Dip) 1+ mg/dL (NEGATIVE); UR CLARITY CLEAR (CLEAR); UR COLOR YELLOW (YELLOW); UR GLUCOSE (Dip) NEGATIVE (NEGATIVE); UR KETONES (Dip) NEGATIVE (NEGATIVE); UR LEUKOCYTE ESTERASE (Dip) TRACE Leu/ul (NEGATIVE); UR NITRITE (Dip) NEGATIVE (NEGATIVE); UR RBC 8 /HPF (0-5); UR SPECIFIC GRAVITY (Dip) 1.039 (1.003-1.030); UR TOTAL PROTEIN (Dip) NEGATIVE (NEGATIVE); UR UROBILINOGEN (Dip) NEGATIVE (NEGATIVE)
[2017-04-11] MEDS: morphine 2 MG INJ IV PRN (10:11)
--- NOTE | 2017-04-11 10:12 | CONS ---
Date/Time of Note Date/Time of Note DATE: 04/11/17 TIME: 10:02 Assessment/Plan Assessment/Plan Chief Complaint/Hosp Course Chest pain/hematemesis: I have confirmed the history again and the pt did in fact have hematemesis. GI pathology remains high on the differential. NSTEMI: Though she had hematemesis, she does have elevated trops and recurrent chest pain. She has a h/o CAD and needs a cath once GI bleed has been evaluated. She also has hyperdynamic LV function and may be having intermittent obstruction leading to her symptoms. Systolic murmur: possible mild but hyperdynamic LV function and may have a component of dynamic obstruction which could explain her chest pain. CAD s/p PCI 5yrs ago HTN -plan for EGD this afternoon and cardiac cath at 7:30 am if no major GI pathology -continue ASA, statin -started metoprolol 50mg BID this am, will increase to 100mg as BP and HR still elevated and may have a component of obstruction leading to her symptoms -hold diltiazem -continue cozaar Problems: Consultation Date/Type/Reason Admit Date/Time Apr 09, 2017 at 20:30 Initial Consult Date 04/10/17 Type of Consultation: Cardiology Referring Provider: NOEL BUNN MD 24 HR Interval Summary Free Text/Dictation Trop peaked at 0.6. No further chest pain. CTA negative. Son was at bedside this am. I was able to ask again (third time) about the sequence of events. The history from the first time was apparently true. She had been vomiting in the am, then fell asleep. When she woke up there was blood in her mouth and dribbling from the side. She was having chest pain and she went to the restroom and vomited blood. Subjective hx not possible: pt non-verbal Exam/Review of Systems Vital Signs Vitals Vital Signs Date Time Temp Pulse Resp B/P Pulse Ox O2 Delivery O2 Flow Rate FiO2 04/11/17 09:02 108 04/11/17 07:36 98.3 19 184/82 99 04/10/17 20:00 Nasal Cannula 2.0 Intake and Output 04/10/17 04/10/17 04/11/17 15:00 23:00 07:00 Intake Total 450 ml 400 ml Balance 450 ml 400 ml Exam Constitutional: alert, oriented Psych: nl mood/affect, no complaints Head: atraumatic, normocephalic Neck: No jvd Respiratory: clear to auscultation, No crackles/rales Cardiovascular: regular rate and rhythm, systolic murmur (3/6 STEPHEN), No edema Gastrointestinal: non-tender, soft Neurological: nl mental status, nl speech Results Result Diagram: 04/10/17 1810 04/10/17 0714 Results 24 hrs Laboratory Tests Test 04/10/17 12:22 04/10/17 13:00 04/10/17 18:10 04/10/17 22:00 Hemoglobin 11.0 L 11.5 L Hematocrit 34.0 L 35.9 L Troponin I 0.361 *H 0.612 *H 0.510 *H Urine Osmolality 554 Urine Random Sodium < 13 L Test 04/11/17 01:37 04/11/17 04:46 04/11/17 06:20 Troponin I 0.547 *H 0.580 *H Urine Color YELLOW Urine Clarity CLEAR Urine pH 6.0 Urine Specific [place] 1.039 H Urine Ketones NEGATIVE Urine Nitrite NEGATIVE Urine Bilirubin NEGATIVE Urine Urobilinogen NEGATIVE Urine Leukocyte Esterase TRACE A Urine Microscopic RBC 8 H Urine Microscopic WBC 6 H Urine Hemoglobin 1+ H Urine Glucose NEGATIVE Urine Total Protein NEGATIVE Medications Medications Current Medications Nitroglycerin (Nitroglycerin (Sl Tab) 0.4 Mg) 1 tab Q5M PRN SL CHEST PAIN Last administered on 04/11/17 01:06; Admin Dose 1 TAB; Start 04/09/17 at 21:00 Acetaminophen (Tylenol Tab) 650 mg Q6H PRN PO PAIN LEVEL 1-3 OR FEVER; Start at 21:00 Morphine Sulfate (morphine) 2 mg Q4H PRN IV PAIN LEVEL 7-10 Last administered on 04/09/17 23:27; Admin Dose 2 MG; Start 04/09/17 at 21:00 Docusate Sodium (Colace) 100 mg Q12H PRN PO CONSTIPATION; Start 04/09/17 at 21: 00 Bisacodyl (Dulcolax) 5 mg DAILY PRN PO CONSTIPATION; Start 04/09/17 at 21:00 Tramadol HCl (Ultram) 50 mg Q6 PRN PO pain; Start 04/09/17 at 22:30 Aspirin (Aspirin) 81 mg DAILY PO Last administered on 04/11/17 08:12; Admin Dose 81 MG; Start 04/10/17 at 09:00 Diltiazem HCl (Cardizem Sr) 90 mg DAILY PO Last administered on 04/11/17 08:13 ; Admin Dose 90 MG; Start 04/09/17 at 23:00 Losartan Potassium (Cozaar) 100 mg DAILY PO Last administered on 04/11/17 08: 13; Admin Dose 100 MG; Start 04/09/17 at 23:00 Potassium Chloride (Klor-Con 10) 10 meq DAILY PO Last administered on 08:14; Admin Dose 10 MEQ; Start 04/10/17 at 09:00 Atorvastatin Calcium (Lipitor) 20 mg HS PO Last administered on 04/10/17 21:33 ; Admin Dose 20 MG; Start 04/10/17 at 21:00 Morphine Sulfate (morphine) 4 mg Q3H PRN IV CHEST PAIN Last administered on 01:16; Admin Dose 4 MG; Start 04/10/17 at 00:30 Ondansetron HCl (Zofran Inj) 4 mg Q4H PRN IV NAUSEA AND/OR VOMITING; Start 08/17 at 00:30 Metoclopramide HCl 10 mg 10 mg Q4H PRN IV vomiting Last administered on 07:32; Admin Dose 10 MG; Start 04/10/17 at 01:00 Meropenem (Merrem 1 Gm/100 ml (Pmx)) 100 ml @ 200 mls/hr Q8 IVPB Last administered on 04/11/17 06:06; Admin Dose 200 MLS/HR; Start 04/11/17 at 02:15 Metoprolol Tartrate (Lopressor) 50 mg BID PO Last administered on 04/11/17 08: 13; Admin Dose 50 MG; Start 04/11/17 at 09:00 CELESTE MC Apr 11, 2017 10:12
[2017-04-11] MEDS ORDERED: METOPROLOL 5 MG INJ IV ONE (10:30)
[2017-04-11] MEDS ORDERED: METOPROLOL 50 MG TAB PO ONE (10:30)
--- NOTE | 2017-04-11 13:45 | PN ---
Date/Time of Note Date/Time of Note DATE: 04/11/17 TIME: 13:44 Assessment/Plan VTE Prophylaxis VTE Prophylaxis Intervention: SCD's Lines/Catheters IV Catheter Type (from Nrs): Saline Lock Urinary Cath still in place: No Assessment/Plan Assessment/Plan 71 yo F presented with epigastric pain and chest discomfort, now with mildly elevated troponin #epigastric pain: PUD v MW tear v other -GI to perform EGD #chest pain now with elevated trop cardiology following, anticipate cath PO status as per consultants Subjective 24 Hr Interval Summary Free Text/Dictation Ed language line used to facilitate communication Pt denies any chest pain. Exam/Review of Systems Vital Signs Vitals Vital Signs Date Time Temp Pulse Resp B/P Pulse Ox O2 Delivery O2 Flow Rate FiO2 04/11/17 12:31 80 04/11/17 11:26 98.2 19 147/70 99 04/11/17 07:50 Nasal Cannula 2.0 Intake and Output 04/10/17 04/10/17 04/11/17 15:00 23:00 07:00 Intake Total 450 ml 400 ml Balance 450 ml 400 ml Exam nad, sitting up in bed rrr lungs clear abd soft no rashes mild troponinemia noted Results Result Diagram: 04/10/17 1810 04/10/17 0714 Results 24 hrs Laboratory Tests Test 04/10/17 18:10 04/10/17 22:00 04/11/17 01:37 04/11/17 04:46 Hemoglobin 11.5 L Hematocrit 35.9 L Troponin I 0.612 *H 0.510 *H 0.547 *H 0.580 *H Test 04/11/17 06:20 Urine Color YELLOW Urine Clarity CLEAR Urine pH 6.0 Urine Specific [place] 1.039 H Urine Ketones NEGATIVE Urine Nitrite NEGATIVE Urine Bilirubin NEGATIVE Urine Urobilinogen NEGATIVE Urine Leukocyte Esterase TRACE A Urine Microscopic RBC 8 H Urine Microscopic WBC 6 H Urine Hemoglobin 1+ H Urine Glucose NEGATIVE Urine Total Protein NEGATIVE Medications Medications Current Medications Nitroglycerin (Nitroglycerin (Sl Tab) 0.4 Mg) 1 tab Q5M PRN SL CHEST PAIN Last administered on 04/11/17t 01:06; Admin Dose 1 TAB; Start 04/09/17 at 21:00 Acetaminophen (Tylenol Tab) 650 mg Q6H PRN PO PAIN LEVEL 1-3 OR FEVER; Start at 21:00 Morphine Sulfate (morphine) 2 mg Q4H PRN IV PAIN LEVEL 7-10 Last administered on 04/11/17 10:11; Admin Dose 2 MG; Start 04/09/17 at 21:00 Docusate Sodium (Colace) 100 mg Q12H PRN PO CONSTIPATION; Start 04/09/17 at 21: 00 Bisacodyl (Dulcolax) 5 mg DAILY PRN PO CONSTIPATION; Start 04/09/17 at 21:00 Tramadol HCl (Ultram) 50 mg Q6 PRN PO pain; Start 04/09/17 at 22:30 Aspirin (Aspirin) 81 mg DAILY PO Last administered on 04/11/17 08:12; Admin Dose 81 MG; Start 04/10/17 at 09:00 Losartan Potassium (Cozaar) 100 mg DAILY PO Last administered on 04/11/17 08: 13; Admin Dose 100 MG; Start 04/09/17 at 23:00 Potassium Chloride (Klor-Con 10) 10 meq DAILY PO Last administered on 08:14; Admin Dose 10 MEQ; Start 04/10/17 at 09:00 Atorvastatin Calcium (Lipitor) 20 mg HS PO Last administered on 04/10/17 21:33 ; Admin Dose 20 MG; Start 04/10/17 at 21:00 Morphine Sulfate (morphine) 4 mg Q3H PRN IV CHEST PAIN Last administered on 01:16; Admin Dose 4 MG; Start 04/10/17 at 00:30 Ondansetron HCl (Zofran Inj) 4 mg Q4H PRN IV NAUSEA AND/OR VOMITING; Start 08/17 at 00:30 Metoclopramide HCl 10 mg 10 mg Q4H PRN IV vomiting Last administered on 07:32; Admin Dose 10 MG; Start 04/10/17 at 01:00 Meropenem (Merrem 1 Gm/100 ml (Pmx)) 100 ml @ 200 mls/hr Q8 IVPB Last administered on 04/11/17 06:06; Admin Dose 200 MLS/HR; Start 04/11/17 at 02:15 Metoprolol Tartrate (Lopressor) 100 mg BID PO ; Start 04/11/17 at 21:00 NOEL BUNN MD Apr 11, 2017 13:45
[2017-04-11] MEDS ORDERED: METOPROLOL 5 MG INJ ONE ×2 (14:02→14:28)
[2017-04-11] MEDS ORDERED: FENTAnyl 50 MCG/ML VIAL ONE (14:28)
[2017-04-11] MEDS ORDERED: MIDAZOLAM 1 MG/ML 2 ML INJ ONE (14:29)
[2017-04-11] MEDS ORDERED: LABETALOL HCL 20MG INJ IV PRN (15:00)
[2017-04-11] MEDS ORDERED: ONDANSETRON 4 MG INJ IV PRN (15:00)
[2017-04-11] MEDS ORDERED: HYDROmorphONE (0.2 MG/ML) 10ML SYG IV PRN (15:00)
[2017-04-11] MEDS ORDERED: METOCLOPRAMIDE 10 MG INJ IV PRN (15:00)
--- NOTE | 2017-04-11 20:21 | OPR ---
Date/Time of Note Date/Time of Note DATE: 04/11/17 TIME: 20:20 Operative Report Preoperative Diagnosis * Hematemesis Postoperative Diagnosis Impression: * Mild gastritis * Mild duodenitis * No biopsies obtained Plan: * PPI therapy * Check H. pylori serology * No contraindication to anticoagulation . Operation/Procedure Performed * EGD . Surgeon: DENISE MASON MD Anesthesia: MAC Estimated Blood Loss: none Specimens * None Grafts/Implants * None Complications: None DENISE MASON MD Apr 11, 2017 20:21
[2017-04-11] MEDS: METOPROLOL 100 MG TAB PO SCH (21:12)
[2017-04-11] MEDS: ATORVASTATIN 20 MG TAB PO SCH (21:12)
[2017-04-12] VITALS (29 sets, daily range): BP systolic 126–174; BP diastolic 54–78; PULSE 70–104; RESP 17–27
[2017-04-12] MEDS: hydrALAzine 20 MG INJ IV PRN ×2 (05:01→20:08)
[2017-04-12] MEDS: PANTOPRAZOLE 40 MG INJ IV SCH (05:43)
[2017-04-12] MEDS: morphine 2 MG INJ IV PRN ×2 (06:08→20:39)
[2017-04-12] MEDS ORDERED: LIDOCAINE 1% (MDV) 20 ML INJ ONE (06:53)
[2017-04-12] MEDS ORDERED: MIDAZOLAM 1 MG/ML 2 ML INJ ONE (06:54)
[2017-04-12] MEDS ORDERED: IODIXANOL LOCM 100 ML BTL ONE (06:54)
[2017-04-12] MEDS ORDERED: NITROGLYCERIN (IC) 100 MCG/ML INJ ONE (06:54)
[2017-04-12] MEDS ORDERED: HEPARIN 1000 UNITS/ML 10 ML INJ ONE (06:54)
[2017-04-12] MEDS ORDERED: VERAPAMIL 5 MG INJ ONE (06:54)
[2017-04-12] MEDS ORDERED: FENTAnyl 50 MCG/ML VIAL ONE (06:55)
[2017-04-12] MEDS ORDERED: SOD CHLORIDE 0.9% 500 ML ONE (07:08)
[2017-04-12] MEDS ORDERED: ASPIRIN 325 MG TAB ONE (08:06)
[2017-04-12] MEDS ORDERED: CLOPIDOGREL 300 MG TAB ONE (08:06)
[2017-04-12] MEDS: SOD CHLORIDE 0.9% 1,000 ML IV SCH ×2 (08:32→11:30)
--- NOTE | 2017-04-12 08:39 | CONS ---
Date/Time of Note Date/Time of Note DATE: 04/12/17 TIME: 08:29 Assessment/Plan Assessment/Plan Chief Complaint/Hosp Course NSTEMI: Trop peaked at 0.6. S/p cath with PCI of mid LAD. Patent RCA and Cx stents. Bare metal stent used as although EGD was normal, the hematemesis remains unclear Hematemesis: normal CTA. EGD with gastritis but nothing to explain annmarie bleeding. Therefore a bare metal stent was placed. Systolic murmur: possible mild but hyperdynamic LV function and may have a component of dynamic obstruction CAD: PCI as above. Patent RCA and Cx stents HTN -continue ASA, statin -plavix 75mg daily -metoprolol 100mg BID -hold diltiazem -continue cozaar Problems: Consultation Date/Type/Reason Admit Date/Time Apr 09, 2017 at 20:30 Initial Consult Date 04/10/17 Type of Consultation: Cardiology Referring Provider: NOEL BUNN MD 24 HR Interval Summary Free Text/Dictation No o/n events. S/p cath this am with PCI of mid LAD Exam/Review of Systems Vital Signs Vitals Vital Signs Date Time Temp Pulse Resp B/P Pulse Ox O2 Delivery O2 Flow Rate FiO2 04/12/17 07:55 99.4 97 20 147/67 98 04/11/17 20:00 Nasal Cannula 3.0 Intake and Output 04/11/17 04/11/17 04/12/17 15:00 23:00 07:00 Intake Total 0 ml 200 ml Balance 0 ml 200 ml Exam Constitutional: alert, oriented Psych: no complaints Head: atraumatic, normocephalic Neck: No jvd Respiratory: clear to auscultation, No crackles/rales Cardiovascular: regular rate and rhythm, No edema Gastrointestinal: non-tender, soft Neurological: nl mental status, nl speech Results Result Diagram: 04/10/17 1810 04/10/17 0714 Medications Medications Current Medications Nitroglycerin (Nitroglycerin (Sl Tab) 0.4 Mg) 1 tab Q5M PRN SL CHEST PAIN Last administered on 04/11/17t 01:06; Admin Dose 1 TAB; Start 04/09/17 at 21:00 Acetaminophen (Tylenol Tab) 650 mg Q6H PRN PO PAIN LEVEL 1-3 OR FEVER; Start at 21:00 Morphine Sulfate (morphine) 2 mg Q4H PRN IV PAIN LEVEL 7-10 Last administered on 04/12/17 06:08; Admin Dose 2 MG; Start 04/09/17 at 21:00 Docusate Sodium (Colace) 100 mg Q12H PRN PO CONSTIPATION; Start 04/09/17 at 21: 00 Bisacodyl (Dulcolax) 5 mg DAILY PRN PO CONSTIPATION; Start 04/09/17 at 21:00 Tramadol HCl (Ultram) 50 mg Q6 PRN PO pain; Start 04/09/17 at 22:30 Aspirin (Aspirin) 81 mg DAILY PO Last administered on 04/11/17 08:12; Admin Dose 81 MG; Start 04/10/17 at 09:00 Losartan Potassium (Cozaar) 100 mg DAILY PO Last administered on 04/11/17 08: 13; Admin Dose 100 MG; Start 04/09/17 at 23:00 Potassium Chloride (Klor-Con 10) 10 meq DAILY PO Last administered on 08:14; Admin Dose 10 MEQ; Start 04/10/17 at 09:00 Atorvastatin Calcium (Lipitor) 20 mg HS PO Last administered on 04/11/17 21:12 ; Admin Dose 20 MG; Start 04/10/17 at 21:00 Morphine Sulfate (morphine) 4 mg Q3H PRN IV CHEST PAIN Last administered on 01:16; Admin Dose 4 MG; Start 04/10/17 at 00:30 Ondansetron HCl (Zofran Inj) 4 mg Q4H PRN IV NAUSEA AND/OR VOMITING; Start 08/17 at 00:30 Metoclopramide HCl (Reglan) 10 mg Q4H PRN IV vomiting Last administered on 04/10 07:32; Admin Dose 10 MG; Start 04/10/17 at 01:00 Metoprolol Tartrate (Lopressor) 100 mg BID PO Last administered on 04/11/17 21 :12; Admin Dose 100 MG; Start 04/11/17 at 21:00 Pantoprazole (Protonix Iv) 40 mg DAILY@06 IV Last administered on 04/12/17 05: 43; Admin Dose 40 MG; Start 04/12/17 at 06:00 Hydralazine HCl (Apresoline) 10 mg Q6H PRN IV ELEVATED SYSTOLIC BP Last administered on 04/12/17t 05:01; Admin Dose 10 MG; Start 04/12/17 at 05:00 CELESTE MC Apr 12, 2017 08:39
--- NOTE | 2017-04-12 08:50 | OPR ---
Date/Time of Note Date/Time of Note DATE: 04/12/17 TIME: 08:40 Operative Report Free Text/Dictation Procedure Date:04/12/2017 Procedures Performed: 1)Left heart catheterization with selective left and right coronary angiography. 2)Direct stenting of the mid LAD with an Integrity 2.5 x 14 bare metal stent. Pre-operative Diagnosis:NSTEMI, chest pain Post-operative Diagnosis:same, s/p PCI of LAD Indications:71 yo F with chest pain and NSTEMI. Pt also had hematemesis as part of her presenting complaint and an EGD was done which showed mild gastritis only. CTA chest was also unremarkable. Description of Procedure: After informed consent, the patient was brought to the cardiac catheterization lab. The procedure site was prepped and draped in usual manner. The patient was premedicated with versed 1mg and fentanyl 25 mcg. 2 mL lidocaine was injected into the right wrist. Next using the posterior wall technique, the 6/ 5 iranian sheath was inserted into the right radial artery. Next using the JL3.5 and JR4, selective angiography of the left and right coronary arteries were obtained. Hemodynamics were obtained using the JL catheter. Left ventricle angiography was not obtained. The decision was made to proceed with PCI of the mid LAD due to the pt's symptoms and NSTEMI. In some views the mid LAD lesion appeared to be from bridging but in the BRAY/cranial view the lesion was 70-80% in both systole and diastole.. A guide was advanced and engaged into the left coronary artery. After appropriate anticoagulation and antiplatelets were given, the BMW angioplasty wire was advanced past the lesion. Subsequently, the Integrity 2.5 x 14 bare metal stent was advanced to the lesion and deployed at nominal pressure. Next the stent was post dilated with the 2.5 X 6 noncompliant balloon times 2 at a maximum of 12 john. Final angiography revealed OLEG 3 flow, no edge dissection, and appropriate stent expansion. Next all equipment was removed and hemostasis was achieved by TR band. Findings: Anatomy/Hemodynamics: Left main: normal LAD: tortuous vessel with mid 70-80% which initially appeared to be from bridging but in the BRAY/cranial view the lesion was 70-80% in both systole and diastole Diagonal:luminal irregularities Circumflex:mid stent patent Obtuse marginal:luminal irregularities RCA:prox 30%, mid stent patent PDA:luminal irregularities PLV:luminal irregularities LV angiography: not done LV-Ao:~15 mmHg peak to peak gradient LVEDP:10 mmHg Contrast used:55 mL Fluoroscopy time:10.2 Medications used: Versed 1 Fentanyl 25 Radial cocktail (5000 units heparin, NTG 200, verapamil 2.5) Additional heparin 3000 units given for ACT 210 prior to PCI Equipment used: 6 iranian JL3 guide BMW angioplasty wire Integrity 2.5 x 14 bare metal stent 2.5 x 6 noncompliant balloon Assessment: NSTEMI: s/p PCI of mid LAD lesion with a bare metal stent as her hematemesis etiology remains unclear CAD: patent RCA and Cx stents. No residual disease Plan: -monitor in PACU and then ICU -ASA -plavix (at least one month, preferably 1 year due to NSTEMI) Surgeon: DENISE MASON MD Anesthesia: MAC Estimated Blood Loss: none Grafts/Implants * None Complications: None CELESTE MC Apr 12, 2017 08:50
[2017-04-12] MEDS: LOSARTAN 50 MG TAB PO SCH ×2 (09:00→10:51)
[2017-04-12] MEDS: METOPROLOL 100 MG TAB PO SCH ×2 (09:00→10:51)
[2017-04-12] MEDS: ASPIRIN 81 MG TAB PO SCH (09:00)
[2017-04-12] MEDS ORDERED: morphine 2 MG INJ IV PRN (09:00)
[2017-04-12] MEDS: POTASSIUM CHLORIDE (SR) 10 MEQ TAB PO SCH ×2 (09:00→10:50)
[2017-04-12 09:47] LABS: ADD UMIC YES; UR ASCORBIC ACID NEGATIVE (NEGATIVE); UR BILIRUBIN (Dip) NEGATIVE (NEGATIVE); UR BLOOD (Dip) 1+ mg/dL (NEGATIVE); UR CLARITY CLEAR (CLEAR); UR COLOR YELLOW (YELLOW); UR GLUCOSE (Dip) NEGATIVE (NEGATIVE); UR KETONES (Dip) TRACE mg/dL (NEGATIVE); UR LEUKOCYTE ESTERASE (Dip) TRACE Leu/ul (NEGATIVE); UR MUCUS FEW /HPF (NONE SEEN); UR NITRITE (Dip) NEGATIVE (NEGATIVE); UR NONSQUAMOUS EPITHELIAL CELL 1 /HPF (NONE SEEN); UR RBC 9 /HPF (0-5); UR SPECIFIC GRAVITY (Dip) 1.019 (1.003-1.030); UR SQUAMOUS EPITHELIAL CELL FEW /HPF (FEW); UR TOTAL PROTEIN (Dip) NEGATIVE (NEGATIVE); UR UROBILINOGEN (Dip) NEGATIVE (NEGATIVE)
--- NOTE | 2017-04-12 12:13 | PN ---
Date/Time of Note Date/Time of Note DATE: 04/12/17 TIME: 12:12 Assessment/Plan VTE Prophylaxis VTE Prophylaxis Intervention: SCD's Lines/Catheters IV Catheter Type (from Nrsg): Peripheral IV Urinary Cath still in place: No Assessment/Plan Assessment/Plan 71 yo F presented with epigastric pain and chest discomfort, subsequently found to have elevated troponin. SP LHC with PCI earlier this AM #NSTEMI: PCI earlier today by cardiology antiplatelet agents as per cards BP control statin #epigastric pain: EGD with gastritis/esophagitis -PPI as per GI transfer from ICU back to floor as per cardiology Subjective 24 Hr Interval Summary Free Text/Dictation Pt taken to ICU after cardiac cath this AM. Sleeping comfortably at time of my evaluation Exam/Review of Systems Vital Signs Vitals Vital Signs Date Time Temp Pulse Resp B/P Pulse Ox O2 Delivery O2 Flow Rate FiO2 04/12/17 11:00 104 21 137/56 93 Nasal Cannula 2.0 04/12/17 10:00 98.6 Intake and Output 04/11/17 04/11/17 04/12/17 15:00 23:00 07:00 Intake Total 0 ml 200 ml Balance 0 ml 200 ml Exam nad ,laying flat wearing NC MMM resp nonlabored no gross abd distension no rashes Results Result Diagram: 04/10/17 1810 04/10/17 0714 Results 24 hrs Laboratory Tests Test 04/11/17 17:35 Urine Color YELLOW Urine Clarity CLEAR Urine pH 6.0 Urine Specific [place] 1.019 Urine Ketones TRACE A Urine Nitrite NEGATIVE Urine Bilirubin NEGATIVE Urine Urobilinogen NEGATIVE Urine Leukocyte Esterase TRACE A Urine Microscopic RBC 9 H Urine Microscopic WBC 6 H Urine Squamous Epithelial Cells FEW Urine Mucus FEW A Urine Hemoglobin 1+ H Urine Glucose NEGATIVE Urine Total Protein NEGATIVE Medications Medications Current Medications Nitroglycerin (Nitroglycerin (Sl Tab) 0.4 Mg) 1 tab Q5M PRN SL CHEST PAIN Last administered on 04/11/17 01:06; Admin Dose 1 TAB; Start 04/09/17 at 21:00 Acetaminophen (Tylenol Tab) 650 mg Q6H PRN PO PAIN LEVEL 1-3 OR FEVER; Start at 21:00 Morphine Sulfate (morphine) 2 mg Q4H PRN IV PAIN LEVEL 7-10 Last administered on 04/12/17 06:08; Admin Dose 2 MG; Start 04/09/17 at 21:00 Docusate Sodium (Colace) 100 mg Q12H PRN PO CONSTIPATION; Start 04/09/17 at 21: 00 Bisacodyl (Dulcolax) 5 mg DAILY PRN PO CONSTIPATION; Start 04/09/17 at 21:00 Tramadol HCl (Ultram) 50 mg Q6 PRN PO pain; Start 04/09/17 at 22:30 Aspirin (Aspirin) 81 mg DAILY PO Last administered on 04/11/17 08:12; Admin Dose 81 MG; Start 04/10/17 at 09:00 Losartan Potassium (Cozaar) 100 mg DAILY PO Last administered on 04/12/17 10: 51; Admin Dose 100 MG; Start 04/09/17 at 23:00 Potassium Chloride (Klor-Con 10) 10 meq DAILY PO Last administered on 10:50; Admin Dose 10 MEQ; Start 04/10/17 at 09:00 Atorvastatin Calcium (Lipitor) 20 mg HS PO Last administered on 04/11/17 21:12 ; Admin Dose 20 MG; Start 04/10/17 at 21:00 Morphine Sulfate (morphine) 4 mg Q3H PRN IV CHEST PAIN Last administered on 01:16; Admin Dose 4 MG; Start 04/10/17 at 00:30 Ondansetron HCl (Zofran Inj) 4 mg Q4H PRN IV NAUSEA AND/OR VOMITING; Start 08/17 at 00:30 Metoclopramide HCl (Reglan) 10 mg Q4H PRN IV vomiting Last administered on 04/10 07:32; Admin Dose 10 MG; Start 04/10/17 at 01:00 Metoprolol Tartrate (Lopressor) 100 mg BID PO Last administered on 04/12/17 10 :51; Admin Dose 100 MG; Start 04/11/17 at 21:00 Pantoprazole (Protonix Iv) 40 mg DAILY@06 IV Last administered on 04/12/17 05: 43; Admin Dose 40 MG; Start 04/12/17 at 06:00 Hydralazine HCl (Apresoline) 10 mg Q6H PRN IV ELEVATED SYSTOLIC BP Last administered on 04/12/17 05:01; Admin Dose 10 MG; Start 7/13/17 at 05:00 Morphine Sulfate 2 mg 2 mg Q2H PRN IV FOR NON CARDIAC PAIN (4-10); Start at 09:00 Sodium Chloride (NS) 1,000 ml @ 75 mls/hr [id number] IV Last administered on 04/12t 11:30; Admin Dose 75 MLS/HR; Start 04/12/17 at 08:32; Stop 04/12/17 at 13: 31 Clopidogrel Bisulfate (plaVIX) 75 mg DAILY PO ; Start 04/13/17 at 09:00 Procedures Procedures brief EGD last night with just gastritis and esophagitis NOEL BUNN MD Apr 12, 2017 12:13
--- NOTE | 2017-04-12 15:19 | PN ---
Date/Time of Note Date/Time of Note DATE: 04/12/17 TIME: 15:13 Assessment/Plan VTE Prophylaxis VTE Prophylaxis Intervention: ambulation Lines/Catheters [facility] Peripheral IV Urinary Cath still in place: No Assessment/Plan Assessment/Plan Assessment * Chest pain ACS * Hematemesis EGD Mild gastritis Mild duodenitis No biopsies obtained Plan * Continue present management * case discussed with DR Paulino * will signed off and follow up as needed Subjective 24 Hr Interval Summary Free Text/Dictation * Course reviewed with RN * Patient seen and examined * EGD Mild gastritis Mild duodenitis No biopsies obtained * S/P heart catheter today Exam/Review of Systems Vital Signs Vitals Vital Signs Date Time Temp Pulse Resp B/P Pulse Ox O2 Delivery O2 Flow Rate FiO2 04/12/17 12:00 98.4 84 19 132/57 98 Nasal Cannula 2.0 Intake and Output 04/11/17 04/11/17 04/12/17 15:00 23:00 07:00 Intake Total 0 ml 200 ml Balance 0 ml 200 ml Exam Constitutional: alert, oriented Eyes: nl conjunctiva Neck: supple Respiratory: clear to auscultation, normal air movement Cardiovascular: nl pulses, regular rate and rhythm Gastrointestinal: nl liver, spleen, non-tender, soft Musculoskeletal: nl extremities to inspection, nl gait and stance Extremities: normal pulses Results Result Diagram: 04/10/17 1810 04/10/17 0714 Results 24 hrs Laboratory Tests Test 04/11/17 17:35 Urine Color YELLOW Urine Clarity CLEAR Urine pH 6.0 Urine Specific [place] 1.019 Urine Ketones TRACE A Urine Nitrite NEGATIVE Urine Bilirubin NEGATIVE Urine Urobilinogen NEGATIVE Urine Leukocyte Esterase TRACE A Urine Microscopic RBC 9 H Urine Microscopic WBC 6 H Urine Squamous Epithelial Cells FEW Urine Mucus FEW A Urine Hemoglobin 1+ H Urine Glucose NEGATIVE Urine Total Protein NEGATIVE Medications Medications Current Medications Nitroglycerin (Nitroglycerin (Sl Tab) 0.4 Mg) 1 tab Q5M PRN SL CHEST PAIN Last administered on 04/11/17 01:06; Admin Dose 1 TAB; Start 04/09/17 at 21:00 Acetaminophen (Tylenol Tab) 650 mg Q6H PRN PO PAIN LEVEL 1-3 OR FEVER; Start at 21:00 Morphine Sulfate (morphine) 2 mg Q4H PRN IV PAIN LEVEL 7-10 Last administered on 04/12/17 06:08; Admin Dose 2 MG; Start 04/09/17 at 21:00 Docusate Sodium (Colace) 100 mg Q12H PRN PO CONSTIPATION; Start 04/09/17 at 21: 00 Bisacodyl (Dulcolax) 5 mg DAILY PRN PO CONSTIPATION; Start 04/09/17 at 21:00 Tramadol HCl (Ultram) 50 mg Q6 PRN PO pain; Start 04/09/17 at 22:30 Aspirin (Aspirin) 81 mg DAILY PO Last administered on 04/11/17 08:12; Admin Dose 81 MG; Start 04/10/17 at 09:00 Losartan Potassium (Cozaar) 100 mg DAILY PO Last administered on 04/12/17 10: 51; Admin Dose 100 MG; Start 04/09/17 at 23:00 Potassium Chloride (Klor-Con 10) 10 meq DAILY PO Last administered on 10:50; Admin Dose 10 MEQ; Start 04/10/17 at 09:00 Atorvastatin Calcium (Lipitor) 20 mg HS PO Last administered on 04/11/17 21:12 ; Admin Dose 20 MG; Start 04/10/17 at 21:00 Morphine Sulfate (morphine) 4 mg Q3H PRN IV CHEST PAIN Last administered on 01:16; Admin Dose 4 MG; Start 04/10/17 at 00:30 Ondansetron HCl (Zofran Inj) 4 mg Q4H PRN IV NAUSEA AND/OR VOMITING; Start 08/17 at 00:30 Metoclopramide HCl (Reglan) 10 mg Q4H PRN IV vomiting Last administered on 04/10 07:32; Admin Dose 10 MG; Start 04/10/17 at 01:00 Metoprolol Tartrate (Lopressor) 100 mg BID PO Last administered on 04/12/17 10 :51; Admin Dose 100 MG; Start 04/11/17 at 21:00 Pantoprazole (Protonix Iv) 40 mg DAILY@06 IV Last administered on 04/12/17 05: 43; Admin Dose 40 MG; Start 04/12/17 at 06:00 Hydralazine HCl (Apresoline) 10 mg Q6H PRN IV ELEVATED SYSTOLIC BP Last administered on 7/13/17at 05:01; Admin Dose 10 MG; Start 04/12/17 at 05:00 Morphine Sulfate (morphine) 2 mg Q2H PRN IV FOR NON CARDIAC PAIN (4-10); Start 04/12/17 at 09:00 Clopidogrel Bisulfate (plaVIX) 75 mg DAILY PO ; Start 04/13/17 at 09:00 SELVIN JACOBSON NP Apr 12, 2017 15:18
--- NOTE | 2017-04-12 16:32 | RADRPT ---
Vent Rate: 84 bpm RR Interval: 0 msec CA Interval: 130 msec QRS Duration: 148 msec QT Interval: 414 msec QTC Interval: 489 msec P-R-T [place]: -18 - 83 - 1 degrees Normal sinus rhythm Right bundle branch block T wave abnormality, consider inferior ischemia Abnormal ECG Electronically Signed By: Dg Morelos [id number]
[2017-04-12] MEDS: ATORVASTATIN 20 MG TAB PO SCH (20:39)
[2017-04-13] VITALS (45 sets, daily range): BP systolic 119–179; BP diastolic 50–145; PULSE 70–105; RESP 15–31
[2017-04-13 05:08] LABS: ADD SCAN DIFF NO
[2017-04-13 05:11] LABS: BASOPHILS % 0.3 % (0.0-2.0); EOSINOPHILS # 0.1 10^3/ul (0.0-0.5); EOSINOPHILS % 1.3 % (0.0-7.0); HEMATOCRIT 28.8 % (37.0-47.0); HEMOGLOBIN 9.3 g/dl (12.0-16.0); LYMPHOCYTES # 1.2 10^3/ul (0.8-2.9); LYMPHOCYTES % 14.2 % (15.0-51.0); MEAN CORPUSCULAR HEMOGLOBIN 27.3 pg (29.0-33.0); MEAN CORPUSCULAR HGB CONC 32.3 g/dl (32.0-37.0); MEAN CORPUSCULAR VOLUME 84.5 fl (82.0-101.0); MEAN PLATELET VOLUME 9.7 fl (7.4-10.4); MONOCYTE # 0.9 10^3/ul (0.3-0.9); MONOCYTES % 10.6 % (0.0-11.0); NEUTROPHIL # 6.3 10^3/ul (1.6-7.5); NEUTROPHILS % 73.3 % (39.0-77.0); PLATELET COUNT 262 10^3/UL (140-415); RED BLOOD COUNT 3.41 10^6/ul (4.20-5.40); RED CELL DISTRIBUTION WIDTH 14.5 % (11.5-14.5); WHITE BLOOD COUNT 8.6 10^3/ul (4.8-10.8)
[2017-04-13] MEDS: PANTOPRAZOLE 40 MG INJ IV SCH (05:46)
[2017-04-13] MEDS: hydrALAzine 20 MG INJ IV PRN ×2 (06:19→18:16)
[2017-04-13] MEDS: morphine 2 MG INJ IV PRN ×2 (06:50→09:29)
[2017-04-13] MEDS: NITROGLYCERIN (SL) 0.4 MG TAB SL PRN (06:53)
[2017-04-13] MEDS ORDERED: METOPROLOL 5 MG INJ IV ONE ×3 (08:00→09:30)
[2017-04-13] MEDS: ASPIRIN 81 MG TAB PO SCH (08:12)
[2017-04-13] MEDS: CLOPIDOGREL 75 MG TAB PO SCH (08:12)
[2017-04-13] MEDS: METOPROLOL 100 MG TAB PO SCH ×2 (08:12→20:36)
[2017-04-13] MEDS ORDERED: METOPROLOL 50 MG TAB PO ONE (09:30)
[2017-04-13] MEDS ORDERED: morphine 2 MG INJ IV ONE (09:30)
--- NOTE | 2017-04-13 10:07 | CONS ---
Date/Time of Note Date/Time of Note DATE: 04/13/17 TIME: 09:58 Assessment/Plan Assessment/Plan Chief Complaint/Hosp Course Chest pain: still with recurrent chest pain despite PCI of LAD. No other lesions to revascularize. Echo this am with hyperdynamic function and no wall motion abnormalities to suggest that the stent is occluded. EKG shows mild global ischemia. She still has an aortic gradient of 3 m/s but the valve does not appear to be significantly stenosed and though no clear obstruction is seen on echo, my suspicion is that she may be having dynamic obstruction (?mid cavitary). She certainly improves with IV and PO beta blockers and does not improve with NTG. NSTEMI: Trop peaked at 0.6. S/p cath with PCI of mid LAD. Patent RCA and Cx stents. Bare metal stent used as although EGD was normal, the hematemesis remains unclear Hematemesis: normal CTA. EGD with gastritis but nothing to explain annmarie bleeding. Therefore a bare metal stent was placed. Systolic murmur: possible mild but hyperdynamic LV function and may have a component of dynamic obstruction CAD: PCI as above. Patent RCA and Cx stents HTN -continue ASA, statin -plavix 75mg daily -increase to metoprolol 150mg BID -continue cozaar -IV metoprolol 5mg PRN for chest pain -trend one more trop Problems: Consultation Date/Type/Reason Admit Date/Time Apr 09, 2017 at 20:30 Initial Consult Date 04/10/17 Type of Consultation: Cardiology Referring Provider: NOEL BUNN MD 24 HR Interval Summary Free Text/Dictation Did well last night.This am she had more chest pain (same as previous). SBP ~180 , HR 105. EKG showed sinus tachycardia, RBBB, mild diffuse ST depressions. With IV and PO metoprolol, her pain improved. Echo showed the same hyperdynamic LV function with no wall motion abnormalities. Exam/Review of Systems Vital Signs Vitals Vital Signs Date Time Temp Pulse Resp B/P Pulse Ox O2 Delivery O2 Flow Rate FiO2 04/13/17 06:00 95 18 179/87 99 Nasal Cannula 3.0 04/13/17 04:00 98.2 Intake and Output 04/12/17 04/12/17 04/13/17 15:00 23:00 07:00 Intake Total 540 ml 955 ml Output Total 700 ml 400 ml 120 ml Balance -160 ml 555 ml -120 ml Exam Constitutional: alert, oriented Head: atraumatic, normocephalic Neck: No jvd Respiratory: crackles/rales (mild), No clear to auscultation Cardiovascular: regular rate and rhythm, systolic murmur (3/6 mid peaking STEPHEN) , No edema Gastrointestinal: non-tender, soft Neurological: nl mental status, nl speech Results Result Diagram: 04/13/17 0441 04/10/17 0714 Results 24 hrs Laboratory Tests Test 04/13/17 04:41 04/13/17 07:55 White Blood Count 8.6 # Red Blood Count 3.41 L Hemoglobin 9.3 L Hematocrit 28.8 L Mean Corpuscular Volume 84.5 Mean Corpuscular Hemoglobin 27.3 L Mean Corpuscular Hemoglobin Concent 32.3 Red Cell Distribution Width 14.5 Platelet Count 262 # Mean Platelet Volume 9.7 Neutrophils % 73.3 Lymphocytes % 14.2 L Monocytes % 10.6 Eosinophils % 1.3 Basophils % 0.3 Nucleated Red Blood Cells % 0.0 Neutrophils # 6.3 Lymphocytes # 1.2 Monocytes # 0.9 Eosinophils # 0.1 Basophils # 0.0 Nucleated Red Blood Cells # 0.0 Troponin I 0.297 *H Medications Medications Current Medications Nitroglycerin (Nitroglycerin (Sl Tab) 0.4 Mg) 1 tab Q5M PRN SL CHEST PAIN Last administered on 04/13/17 06:53; Admin Dose 1 TAB; Start 04/09/17 at 21:00 Acetaminophen (Tylenol Tab) 650 mg Q6H PRN PO PAIN LEVEL 1-3 OR FEVER; Start at 21:00 Morphine Sulfate (morphine) 2 mg Q4H PRN IV PAIN LEVEL 7-10 Last administered on 04/13/17 09:29; Admin Dose 2 MG; Start 04/09/17 at 21:00 Docusate Sodium (Colace) 100 mg Q12H PRN PO CONSTIPATION; Start 04/09/17 at 21: 00 Bisacodyl (Dulcolax) 5 mg DAILY PRN PO CONSTIPATION; Start 04/09/17 at 21:00 Tramadol HCl (Ultram) 50 mg Q6 PRN PO pain; Start 04/09/17 at 22:30 Aspirin (Aspirin) 81 mg DAILY PO Last administered on 04/13/17 08:12; Admin Dose 81 MG; Start 04/10/17 at 09:00 Losartan Potassium (Cozaar) 100 mg DAILY PO Last administered on 04/12/17 10: 51; Admin Dose 100 MG; Start 04/09/17 at 23:00 Potassium Chloride (Klor-Con 10) 10 meq DAILY PO Last administered on 10:50; Admin Dose 10 MEQ; Start 04/10/17 at 09:00 Atorvastatin Calcium (Lipitor) 20 mg HS PO Last administered on 04/12/17 20:39 ; Admin Dose 20 MG; Start 04/10/17 at 21:00 Morphine Sulfate (morphine) 4 mg Q3H PRN IV CHEST PAIN Last administered on 01:16; Admin Dose 4 MG; Start 04/10/17 at 00:30 Ondansetron HCl (Zofran Inj) 4 mg Q4H PRN IV NAUSEA AND/OR VOMITING; Start 08/17 at 00:30 Metoclopramide HCl (Reglan) 10 mg Q4H PRN IV vomiting Last administered on 04/10 07:32; Admin Dose 10 MG; Start 04/10/17 at 01:00 Pantoprazole (Protonix Iv) 40 mg DAILY@06 IV Last administered on 04/13/17 05: 46; Admin Dose 40 MG; Start 04/12/17 at 06:00 Hydralazine HCl (Apresoline) 10 mg Q6H PRN IV ELEVATED SYSTOLIC BP Last administered on 04/13/17 06:19; Admin Dose 10 MG; Start 04/12/17 at 05:00 Morphine Sulfate (morphine) 2 mg Q2H PRN IV FOR NON CARDIAC PAIN (4-10); Start 04/12/17 at 09:00 Clopidogrel Bisulfate (plaVIX) 75 mg DAILY PO Last administered on 04/13/17 08 :12; Admin Dose 75 MG; Start 04/13/17 at 09:00 Metoprolol Tartrate (Lopressor) 150 mg BID PO ; Start 04/13/17 at 21:00 CELESTE MC Apr 13, 2017 10:07
[2017-04-13 10:12] LABS: CALCIUM 8.5 mg/dl (8.4-10.2); CREATININE 0.52 mg/dl (0.44-1.00); POTASSIUM 3.1 mmol/L (3.5-5.1)
--- NOTE | 2017-04-13 10:25 | RADRPT ---
Echocardiogram Report Patient Name: JAZZ ULLOA Gender: Female Date: 1945 Study Date: 13-Apr-2017 Residential Coordinator: Isha Sawyer RDCS Location: 110 Ref. Physician: CELESTE LEWIS Quality: Good Procedures: Transthoracic echocardiogram examination. Indications: Aortic Valve Disease. 2D/M Mode Doppler Measurement Value Normal Range Measurement Value Normal Range LVOT Diam 1.8 cm DIONNE Vmax 1.1 cm2 LVOT Area 2.5 cm2 DIONNE VTI 1.2 cm2 AV Mean John 2.0 m/sec AV Mean PG 20.0 mmHg AV Peak John 3.1 m/sec AV Peak PG 39.0 mmHg AV VTI 68.4 cm AI Peak PG 91.0 mmHg AI Peak John 4.8 m/sec LVOT Mean John 1.0 m/sec LVOT Mean PG 4.0 mmHg LVOT Peak John 1.4 m/sec LVOT Peak PG 8.0 mmHg LVOT VTI 33.1 cm Findings Left Ventricle: Hyperdynamic left ventricular systolic function. The left ventricular ejection fraction is visually estimated at 70 %. Right Ventricle: Normal right ventricular size. Normal right ventricular systolic function. Left Atrium: There is mild enlargement of left atrium. Right Atrium: The right atrium is normal in size and appearance. Mitral Valve: Mild mitral regurgitation. Aortic Valve: Mild to moderate aortic stenosis. Aortic cusps appear mildly calcified. Mild to moderate aortic regurgitation. Tricuspid Valve: The tricuspid valve is not well visualized. Pulmonic Valve: The pulmonic valve is not well visualized. Pericardium: Normal pericardium with no significant pericardial effusion. Aorta: Normal aortic root. IVC: Normal inferior vena cava appearance and respiratory collapse. Pulmonary Artery: Pulmonary artery is not well visualized. Rhythm: Normal sinus rhythm. Conclusions Limited study. Hyperdynamic left ventricular systolic function. The left ventricular ejection fraction is visually estimated at >70 %. No obvious LVOt obstruction seen though may be having apical or mid cavitary obstruction which is not well seen. Mild to moderate aortic stenosis by gradients (Vm 3.2 m/s, peak/mean 40/20 mmHg), but visually appears to be more mild and without leaflet restriction and so there may be a component of LV obstruction from the hyperdynamic systolic function. Mild to moderate aortic regurgitation. Mild mitral regurgitation. RA pressure is 3 mmHg. Electronically Signed By: Celeste Lewis 13-Apr-2017 10:24:41 -0700 Patient Name: JAZZ ULLOA Study Date: 13-Apr-2017 [id number]
[2017-04-13] MEDS ORDERED: METOPROLOL 5 MG INJ IV PRN (10:30)
--- NOTE | 2017-04-13 12:16 | PN ---
Date/Time of Note Date/Time of Note DATE: 04/13/17 TIME: 12:14 Assessment/Plan VTE Prophylaxis VTE Prophylaxis Intervention: SCD's Lines/Catheters IV Catheter Type (from Nrs): Peripheral IV Urinary Cath still in place: No Assessment/Plan Assessment/Plan Assessment * Chest pain ACS * Hematemesis EGD Mild gastritis Mild duodenitis No biopsies obtained Plan * Continue present management * case discussed with DR Paulino * will signed off and follow up as needed Subjective 24 Hr Interval Summary Free Text/Dictation * Course reviewed * Complain on and off chest pain * No untoward events overnight Exam/Review of Systems Vital Signs Vitals Vital Signs Date Time Temp Pulse Resp B/P Pulse Ox O2 Delivery O2 Flow Rate FiO2 04/13/17 11:45 79 22 156/70 100 04/13/17 11:00 Nasal Cannula 3.0 04/13/17 08:00 98.7 Intake and Output 04/12/17 04/12/17 04/13/17 15:00 23:00 07:00 Intake Total 540 ml 955 ml Output Total 700 ml 400 ml 120 ml Balance -160 ml 555 ml -120 ml Exam Constitutional: alert, frail Head: normocephalic Neck: supple Respiratory: clear to auscultation, normal air movement Cardiovascular: nl pulses, regular rate and rhythm Gastrointestinal: non-tender, soft Musculoskeletal: nl extremities to inspection, nl gait and stance Extremities: normal pulses Neurological: nl speech Skin: nl turgor, No rash or lesions Results Result Diagram: 04/13/17 0441 04/13/17 0755 Results 24 hrs Laboratory Tests Test 04/13/17 04:41 04/13/17 07:55 White Blood Count 8.6 # Red Blood Count 3.41 L Hemoglobin 9.3 L Hematocrit 28.8 L Mean Corpuscular Volume 84.5 Mean Corpuscular Hemoglobin 27.3 L Mean Corpuscular Hemoglobin Concent 32.3 Red Cell Distribution Width 14.5 Platelet Count 262 # Mean Platelet Volume 9.7 Neutrophils % 73.3 Lymphocytes % 14.2 L Monocytes % 10.6 Eosinophils % 1.3 Basophils % 0.3 Nucleated Red Blood Cells % 0.0 Neutrophils # 6.3 Lymphocytes # 1.2 Monocytes # 0.9 Eosinophils # 0.1 Basophils # 0.0 Nucleated Red Blood Cells # 0.0 Sodium Level 126 L Potassium Level 3.1 L Chloride Level 95 L Carbon Dioxide Level 25 Anion Gap 9 Blood Urea Nitrogen 9 Creatinine 0.52 Glucose Level 118 Calcium Level 8.5 Troponin I 0.297 *H Medications Medications Current Medications Nitroglycerin (Nitroglycerin (Sl Tab) 0.4 Mg) 1 tab Q5M PRN SL CHEST PAIN Last administered on 04/13/17 06:53; Admin Dose 1 TAB; Start 04/09/17 at 21:00 Acetaminophen (Tylenol Tab) 650 mg Q6H PRN PO PAIN LEVEL 1-3 OR FEVER; Start at 21:00 Morphine Sulfate (morphine) 2 mg Q4H PRN IV PAIN LEVEL 7-10 Last administered on 04/13/17 09:29; Admin Dose 2 MG; Start 04/09/17 at 21:00 Docusate Sodium (Colace) 100 mg Q12H PRN PO CONSTIPATION; Start 04/09/17 at 21: 00 Bisacodyl (Dulcolax) 5 mg DAILY PRN PO CONSTIPATION; Start 04/09/17 at 21:00 Tramadol HCl (Ultram) 50 mg Q6 PRN PO pain; Start 04/09/17 at 22:30 Aspirin (Aspirin) 81 mg DAILY PO Last administered on 04/13/17 08:12; Admin Dose 81 MG; Start 04/10/17 at 09:00 Losartan Potassium (Cozaar) 100 mg DAILY PO Last administered on 04/12/17 10: 51; Admin Dose 100 MG; Start 04/09/17 at 23:00 Potassium Chloride (Klor-Con 10) 10 meq DAILY PO Last administered on 10:50; Admin Dose 10 MEQ; Start 04/10/17 at 09:00 Atorvastatin Calcium (Lipitor) 20 mg HS PO Last administered on 04/12/17 20:39 ; Admin Dose 20 MG; Start 04/10/17 at 21:00 Morphine Sulfate (morphine) 4 mg Q3H PRN IV CHEST PAIN Last administered on 01:16; Admin Dose 4 MG; Start 04/10/17 at 00:30 Ondansetron HCl (Zofran Inj) 4 mg Q4H PRN IV NAUSEA AND/OR VOMITING; Start 08/17 at 00:30 Metoclopramide HCl (Reglan) 10 mg Q4H PRN IV vomiting Last administered on 04/10 07:32; Admin Dose 10 MG; Start 04/10/17 at 01:00 Pantoprazole (Protonix Iv) 40 mg DAILY@06 IV Last administered on 04/13/17 05: 46; Admin Dose 40 MG; Start 04/12/17 at 06:00 Hydralazine HCl (Apresoline) 10 mg Q6H PRN IV ELEVATED SYSTOLIC BP Last administered on 04/13/17 06:19; Admin Dose 10 MG; Start 04/12/17 at 05:00 Morphine Sulfate (morphine) 2 mg Q2H PRN IV FOR NON CARDIAC PAIN (4-10); Start 04/12/17 at 09:00 Clopidogrel Bisulfate (plaVIX) 75 mg DAILY PO Last administered on 04/13/17 08 :12; Admin Dose 75 MG; Start 04/13/17 at 09:00 Metoprolol Tartrate (Lopressor) 150 mg BID PO ; Start 04/13/17 at 21:00 Metoprolol Tartrate (Lopressor) 5 mg [id number] PRN IV chest pain ; Start at 10:30 SELVIN JACOBSON NP Apr 13, 2017 12:16
--- NOTE | 2017-04-13 12:37 | RADRPT ---
PROCEDURE: XR Chest 1 view. CLINICAL INDICATION: Chest pain TECHNIQUE: AP views of the chest were obtained. COMPARISON: CT April 10, 2017 and chest x-ray April 09, 2017 FINDINGS: The heart is large. Calcified atherosclerosis is noted in the aorta. The lungs are hyperexpanded. Central pulmonary vascular congestion and interstitial prominence is seen in both lungs. Bilateral mid and lower lung infiltrates, combined with small pleural effusions are identified. The osseous s tructures are osteopenic, but appear grossly intact. IMPRESSION: Cardiomegaly with calcified atherosclerosis in the aorta. Central pulmonary vascular congestion and interstitial prominence in both lungs. Bilateral mid and lower lung infiltrates, combined with small pleural effusions. Hyperexpanded lungs. RPTAT: AA .Yuri Escudero MD, Date Time Electronically viewed and signed by .Yuri Escudero MD, on 04/13/2017 12:37 .P/
--- NOTE | 2017-04-13 13:33 | PN ---
Date/Time of Note Date/Time of Note DATE: 04/13/17 TIME: 13:30 Assessment/Plan VTE Prophylaxis VTE Prophylaxis Intervention: SCD's Lines/Catheters IV Catheter Type (from Nrs): Peripheral IV Urinary Cath still in place: No Assessment/Plan Assessment/Plan 71 yo F presented with epigastric pain and chest discomfort, subsequently found to have elevated troponin. SP [facility] with PCI 7.13 #NSTEMI: PCI 7.13 by cards antiplatelet agents as per cards BP control as per cards statin #epigastric pain: EGD with gastritis/esophagitis -PPI as per GI, now signed off critical care time: 30 minutes Subjective 24 Hr Interval Summary Free Text/Dictation Pt with some chest pain earlier this AM. Resolved with increased bb from cardiology Exam/Review of Systems Vital Signs Vitals Vital Signs Date Time Temp Pulse Resp B/P Pulse Ox O2 Delivery O2 Flow Rate FiO2 04/13/17 11:45 79 22 156/70 100 04/13/17 11:00 Nasal Cannula 3.0 04/13/17 08:00 98.7 Intake and Output 04/12/17 04/12/17 04/13/17 15:00 23:00 07:00 Intake Total 540 ml 955 ml Output Total 700 ml 400 ml 120 ml Balance -160 ml 555 ml -120 ml Exam nad, laying in bed no mrg lungs clear abd soft no rashes Results Result Diagram: 04/13/17 0441 04/13/17 0755 Results 24 hrs Laboratory Tests Test 04/13/17 04:41 04/13/17 07:55 White Blood Count 8.6 # Red Blood Count 3.41 L Hemoglobin 9.3 L Hematocrit 28.8 L Mean Corpuscular Volume 84.5 Mean Corpuscular Hemoglobin 27.3 L Mean Corpuscular Hemoglobin Concent 32.3 Red Cell Distribution Width 14.5 Platelet Count 262 # Mean Platelet Volume 9.7 Neutrophils % 73.3 Lymphocytes % 14.2 L Monocytes % 10.6 Eosinophils % 1.3 Basophils % 0.3 Nucleated Red Blood Cells % 0.0 Neutrophils # 6.3 Lymphocytes # 1.2 Monocytes # 0.9 Eosinophils # 0.1 Basophils # 0.0 Nucleated Red Blood Cells # 0.0 Sodium Level 126 L Potassium Level 3.1 L Chloride Level 95 L Carbon Dioxide Level 25 Anion Gap 9 Blood Urea Nitrogen 9 Creatinine 0.52 Glucose Level 118 Calcium Level 8.5 Troponin I 0.297 *H Medications Medications Current Medications Nitroglycerin (Nitroglycerin (Sl Tab) 0.4 Mg) 1 tab Q5M PRN SL CHEST PAIN Last administered on 04/13/17 06:53; Admin Dose 1 TAB; Start 04/09/17 at 21:00 Acetaminophen (Tylenol Tab) 650 mg Q6H PRN PO PAIN LEVEL 1-3 OR FEVER; Start at 21:00 Morphine Sulfate (morphine) 2 mg Q4H PRN IV PAIN LEVEL 7-10 Last administered on 04/13/17 09:29; Admin Dose 2 MG; Start 04/09/17 at 21:00 Docusate Sodium (Colace) 100 mg Q12H PRN PO CONSTIPATION; Start 04/09/17 at 21: 00 Bisacodyl (Dulcolax) 5 mg DAILY PRN PO CONSTIPATION; Start 04/09/17 at 21:00 Tramadol HCl (Ultram) 50 mg Q6 PRN PO pain; Start 04/09/17 at 22:30 Aspirin (Aspirin) 81 mg DAILY PO Last administered on 04/13/17 08:12; Admin Dose 81 MG; Start 04/10/17 at 09:00 Losartan Potassium (Cozaar) 100 mg DAILY PO Last administered on 04/12/17 10: 51; Admin Dose 100 MG; Start 04/09/17 at 23:00 Potassium Chloride (Klor-Con 10) 10 meq DAILY PO Last administered on 10:50; Admin Dose 10 MEQ; Start 04/10/17 at 09:00 Atorvastatin Calcium (Lipitor) 20 mg HS PO Last administered on 04/12/17 20:39 ; Admin Dose 20 MG; Start 04/10/17 at 21:00 Morphine Sulfate (morphine) 4 mg Q3H PRN IV CHEST PAIN Last administered on 01:16; Admin Dose 4 MG; Start 04/10/17 at 00:30 Ondansetron HCl (Zofran Inj) 4 mg Q4H PRN IV NAUSEA AND/OR VOMITING; Start 08/17 at 00:30 Metoclopramide HCl (Reglan) 10 mg Q4H PRN IV vomiting Last administered on 04/10 07:32; Admin Dose 10 MG; Start 04/10/17 at 01:00 Pantoprazole (Protonix Iv) 40 mg DAILY@06 IV Last administered on 04/13/17 05: 46; Admin Dose 40 MG; Start 04/12/17 at 06:00 Hydralazine HCl (Apresoline) 10 mg Q6H PRN IV ELEVATED SYSTOLIC BP Last administered on 04/13/17 06:19; Admin Dose 10 MG; Start 04/12/17 at 05:00 Morphine Sulfate (morphine) 2 mg Q2H PRN IV FOR NON CARDIAC PAIN (4-10); Start 04/12/17 at 09:00 Clopidogrel Bisulfate (plaVIX) 75 mg DAILY PO Last administered on 04/13/17 08 :12; Admin Dose 75 MG; Start 04/13/17 at 09:00 Metoprolol Tartrate (Lopressor) 150 mg BID PO ; Start 04/13/17 at 21:00 Metoprolol Tartrate (Lopressor) 5 mg [id number] PRN IV chest pain ; Start at 10:30 NOEL BUNN MD Apr 13, 2017 13:32
[2017-04-13] MEDS: AMLODIPINE 5 MG TAB PO SCH (19:03)
[2017-04-13] MEDS: ATORVASTATIN 20 MG TAB PO SCH (20:36)
[2017-04-13] MEDS: METOCLOPRAMIDE 10 MG INJ IV PRN (20:59)
[2017-04-14] VITALS (21 sets, daily range): BP systolic 97–190; BP diastolic 31–119; PULSE 70–94; RESP 16–23
[2017-04-14] MEDS: PANTOPRAZOLE 40 MG INJ IV SCH (06:07)
[2017-04-14] MEDS: CLOPIDOGREL 75 MG TAB PO SCH (09:18)
[2017-04-14] MEDS: LOSARTAN 50 MG TAB PO SCH (09:18)
[2017-04-14] MEDS: POTASSIUM CHLORIDE (SR) 10 MEQ TAB PO SCH (09:18)
[2017-04-14] MEDS: METOPROLOL 100 MG TAB PO SCH ×2 (09:18→21:08)
[2017-04-14] MEDS: AMLODIPINE 5 MG TAB PO SCH (09:18)
[2017-04-14] MEDS: ASPIRIN 81 MG TAB PO SCH (09:18)
--- NOTE | 2017-04-14 11:51 | CONS ---
Date/Time of Note Date/Time of Note DATE: 04/14/17 TIME: 11:48 Assessment/Plan Assessment/Plan Chief Complaint/Hosp Course Chest pain: Recurrent chest pain despite PCI of LAD. No other lesions to revascularize. Echo with hyperdynamic function and no wall motion abnormalities to suggest that the stent is occluded. EKG showed mild global ischemia. She still has an aortic gradient of 3 m/s but the valve does not appear to be significantly stenosed and though no clear obstruction is seen on echo, my suspicion is that she may be having dynamic obstruction (?mid cavitary). Now resolved on higher doses of MTP NSTEMI: Trop peaked at 0.6. S/p cath with PCI of mid LAD. Patent RCA and Cx stents. Bare metal stent used as although EGD was normal, the hematemesis remains unclear Hematemesis: normal CTA. EGD with gastritis but nothing to explain annmarie bleeding. Therefore a bare metal stent was placed. Systolic murmur: possible mild but hyperdynamic LV function and may have a component of dynamic obstruction CAD: PCI as above. Patent RCA and Cx stents HTN -ok for tele. Possible d/c home tomorrow -continue ASA, statin -plavix 75mg daily -metoprolol 150mg BID -continue cozaar -amlodipine 5mg added -IV metoprolol 5mg PRN for chest pain Problems: Consultation Date/Type/Reason Admit Date/Time Apr 09, 2017 at 20:30 Initial Consult Date 04/10/17 Type of Consultation: Cardiology Referring Provider: NOEL UBNN MD 24 HR Interval Summary Free Text/Dictation No further chest pain. No SOB. Wants to walk around. BP better controlled. Exam/Review of Systems Vital Signs Vitals Vital Signs Date Time Temp Pulse Resp B/P Pulse Ox O2 Delivery O2 Flow Rate FiO2 04/14/17 09:00 86 17 156/119 97 Nasal Cannula 1.0 04/14/17 08:00 98.8 Intake and Output 04/13/17 04/13/17 04/14/17 15:00 23:00 07:00 Intake Total 360 ml 360 ml 120 ml Balance 360 ml 360 ml 120 ml Exam Constitutional: alert, oriented Psych: nl mood/affect, no complaints Head: atraumatic, normocephalic Neck: No jvd Respiratory: crackles/rales, No clear to auscultation Cardiovascular: regular rate and rhythm, systolic murmur (3/6 STEPHEN), No edema Gastrointestinal: non-tender, soft Neurological: nl mental status, nl speech Results Result Diagram: 04/13/17 0441 04/13/17 0755 Medications Medications Current Medications Nitroglycerin (Nitroglycerin (Sl Tab) 0.4 Mg) 1 tab Q5M PRN SL CHEST PAIN Last administered on 04/13/17 06:53; Admin Dose 1 TAB; Start 04/09/17 at 21:00 Acetaminophen (Tylenol Tab) 650 mg Q6H PRN PO PAIN LEVEL 1-3 OR FEVER; Start at 21:00 Morphine Sulfate (morphine) 2 mg Q4H PRN IV PAIN LEVEL 7-10 Last administered on 04/13/17 09:29; Admin Dose 2 MG; Start 04/09/17 at 21:00 Docusate Sodium (Colace) 100 mg Q12H PRN PO CONSTIPATION Last administered on 20:59; Admin Dose 100 MG; Start 04/09/17 at 21:00 Bisacodyl (Dulcolax) 5 mg DAILY PRN PO CONSTIPATION; Start 04/09/17 at 21:00 Tramadol HCl (Ultram) 50 mg Q6 PRN PO pain; Start 04/09/17 at 22:30 Aspirin (Aspirin) 81 mg DAILY PO Last administered on 04/14/17 09:18; Admin Dose 81 MG; Start 04/10/17 at 09:00 Losartan Potassium (Cozaar) 100 mg DAILY PO Last administered on 04/14/17 09: 18; Admin Dose 100 MG; Start 04/09/17 at 23:00 Potassium Chloride (Klor-Con 10) 10 meq DAILY PO Last administered on 09:18; Admin Dose 10 MEQ; Start 04/10/17 at 09:00 Atorvastatin Calcium (Lipitor) 20 mg HS PO Last administered on 04/13/17 20:36 ; Admin Dose 20 MG; Start 04/10/17 at 21:00 Morphine Sulfate (morphine) 4 mg Q3H PRN IV CHEST PAIN Last administered on 01:16; Admin Dose 4 MG; Start 04/10/17 at 00:30 Ondansetron HCl (Zofran Inj) 4 mg Q4H PRN IV NAUSEA AND/OR VOMITING Last administered on 04/13/17 19:08; Admin Dose 4 MG; Start 04/10/17 at 00:30 Metoclopramide HCl (Reglan) 10 mg Q4H PRN IV vomiting Last administered on 04/13 20:59; Admin Dose 10 MG; Start 04/10/17 at 01:00 Pantoprazole (Protonix Iv) 40 mg DAILY@06 IV Last administered on 04/14/17 06: 07; Admin Dose 40 MG; Start 04/12/17 at 06:00 Hydralazine HCl (Apresoline) 10 mg Q6H PRN IV ELEVATED SYSTOLIC BP Last administered on 04/13/17 18:16; Admin Dose 10 MG; Start 04/12/17 at 05:00 Morphine Sulfate (morphine) 2 mg Q2H PRN IV FOR NON CARDIAC PAIN (4-10); Start 04/12/17 at 09:00 Clopidogrel Bisulfate (plaVIX) 75 mg DAILY PO Last administered on 04/14/17 09 :18; Admin Dose 75 MG; Start 04/13/17 at 09:00 Metoprolol Tartrate (Lopressor) 150 mg BID PO Last administered on 04/14/17 09 :18; Admin Dose 150 MG; Start 04/13/17 at 21:00 Metoprolol Tartrate (Lopressor) 5 mg [id number] PRN IV chest pain ; Start at 10:30 Amlodipine Besylate (Norvasc) 5 mg DAILY PO Last administered on 04/14/17 09: 18; Admin Dose 5 MG; Start 04/13/17 at 19:00 CELESTE MC Apr 14, 2017 11:51
--- NOTE | 2017-04-14 12:54 | PN ---
Date/Time of Note Date/Time of Note DATE: 04/14/17 TIME: 12:53 Assessment/Plan VTE Prophylaxis VTE Prophylaxis Intervention: SCD's Lines/Catheters IV Catheter Type (from Nrs): Saline Lock Urinary Cath still in place: No Assessment/Plan Assessment/Plan 71 yo F presented with epigastric pain and chest discomfort, subsequently found to have elevated troponin. SP [facility] with PCI 7.13 #NSTEMI: PCI 7.13 by cards antiplatelet agents as per cards BP control as per cards statin #epigastric pain: EGD with gastritis/esophagitis -PPI as per GI, signed off critical care time: 30 minutes transfer from ICU to tele Subjective 24 Hr Interval Summary Free Text/Dictation No more chest pain. BP improved. Reports some gas pain to R side. Also wants warm milk to go with breakfast Exam/Review of Systems Vital Signs Vitals Vital Signs Date Time Temp Pulse Resp B/P Pulse Ox O2 Delivery O2 Flow Rate FiO2 04/14/17 12:00 98.4 78 19 136/112 92 Nasal Cannula 1.0 Intake and Output 04/13/17 04/13/17 04/14/17 15:00 23:00 07:00 Intake Total 360 ml 360 ml 120 ml Balance 360 ml 360 ml 120 ml Exam nad no mrg lungs clear abd soft no rashes Results Result Diagram: 04/13/17 0441 04/13/17 0755 Medications Medications Current Medications Nitroglycerin (Nitroglycerin (Sl Tab) 0.4 Mg) 1 tab Q5M PRN SL CHEST PAIN Last administered on 04/13/17 06:53; Admin Dose 1 TAB; Start 04/09/17 at 21:00 Acetaminophen (Tylenol Tab) 650 mg Q6H PRN PO PAIN LEVEL 1-3 OR FEVER; Start at 21:00 Morphine Sulfate (morphine) 2 mg Q4H PRN IV PAIN LEVEL 7-10 Last administered on 04/13/17 09:29; Admin Dose 2 MG; Start 04/09/17 at 21:00 Docusate Sodium (Colace) 100 mg Q12H PRN PO CONSTIPATION Last administered on 20:59; Admin Dose 100 MG; Start 04/09/17 at 21:00 Bisacodyl (Dulcolax) 5 mg DAILY PRN PO CONSTIPATION; Start 04/09/17 at 21:00 Tramadol HCl (Ultram) 50 mg Q6 PRN PO pain; Start 04/09/17 at 22:30 Aspirin (Aspirin) 81 mg DAILY PO Last administered on 04/14/17 09:18; Admin Dose 81 MG; Start 04/10/17 at 09:00 Losartan Potassium (Cozaar) 100 mg DAILY PO Last administered on 04/14/17 09: 18; Admin Dose 100 MG; Start 04/09/17 at 23:00 Potassium Chloride (Klor-Con 10) 10 meq DAILY PO Last administered on 09:18; Admin Dose 10 MEQ; Start 04/10/17 at 09:00 Atorvastatin Calcium (Lipitor) 20 mg HS PO Last administered on 04/13/17 20:36 ; Admin Dose 20 MG; Start 04/10/17 at 21:00 Morphine Sulfate (morphine) 4 mg Q3H PRN IV CHEST PAIN Last administered on 01:16; Admin Dose 4 MG; Start 04/10/17 at 00:30 Ondansetron HCl (Zofran Inj) 4 mg Q4H PRN IV NAUSEA AND/OR VOMITING Last administered on 04/13/17 19:08; Admin Dose 4 MG; Start 04/10/17 at 00:30 Metoclopramide HCl (Reglan) 10 mg Q4H PRN IV vomiting Last administered on 04/13 20:59; Admin Dose 10 MG; Start 04/10/17 at 01:00 Pantoprazole (Protonix Iv) 40 mg DAILY@06 IV Last administered on 04/14/17 06: 07; Admin Dose 40 MG; Start 04/12/17 at 06:00 Hydralazine HCl (Apresoline) 10 mg Q6H PRN IV ELEVATED SYSTOLIC BP Last administered on 04/13/17 18:16; Admin Dose 10 MG; Start 04/12/17 at 05:00 Morphine Sulfate (morphine) 2 mg Q2H PRN IV FOR NON CARDIAC PAIN (4-10); Start 04/12/17 at 09:00 Clopidogrel Bisulfate (plaVIX) 75 mg DAILY PO Last administered on 04/14/17 09 :18; Admin Dose 75 MG; Start 04/13/17 at 09:00 Metoprolol Tartrate (Lopressor) 150 mg BID PO Last administered on 04/14/17 09 :18; Admin Dose 150 MG; Start 04/13/17 at 21:00 Metoprolol Tartrate (Lopressor) 5 mg [id number] PRN IV chest pain ; Start at 10:30 Amlodipine Besylate (Norvasc) 5 mg DAILY PO Last administered on 04/14/17 09: 18; Admin Dose 5 MG; Start 04/13/17 at 19:00 NOEL BUNN MD Apr 14, 2017 12:54
[2017-04-14] MEDS: ATORVASTATIN 20 MG TAB PO SCH (21:08)
[2017-04-15] VITALS (14 sets, daily range): BP systolic 146–183; BP diastolic 65–96; PULSE 60–79; RESP 17–18
[2017-04-15] MEDS: hydrALAzine 20 MG INJ IV PRN (00:04)
[2017-04-15] MEDS: morphine 2 MG INJ IV PRN (00:33)
[2017-04-15] MEDS: PANTOPRAZOLE 40 MG INJ IV SCH (05:43)
[2017-04-15] MEDS: POTASSIUM CHLORIDE (SR) 10 MEQ TAB PO SCH (08:53)
[2017-04-15] MEDS: ASPIRIN 81 MG TAB PO SCH (08:53)
[2017-04-15] MEDS: CLOPIDOGREL 75 MG TAB PO SCH (08:53)
[2017-04-15] MEDS: LOSARTAN 50 MG TAB PO SCH (08:54)
[2017-04-15] MEDS: METOPROLOL 100 MG TAB PO SCH ×2 (08:55→20:34)
[2017-04-15] MEDS: AMLODIPINE 5 MG TAB PO SCH ×2 (08:56→20:35)
--- NOTE | 2017-04-15 12:18 | CONS ---
Date/Time of Note Date/Time of Note DATE: 04/15/17 TIME: 12:16 Assessment/Plan Assessment/Plan Chief Complaint/Hosp Course Chest pain: Recurrent chest pain despite PCI of LAD. No other lesions to revascularize. Echo with hyperdynamic function and no wall motion abnormalities to suggest that the stent is occluded. EKG showed mild global ischemia. She still has an aortic gradient of 3 m/s but the valve does not appear to be significantly stenosed and though no clear obstruction is seen on echo, my suspicion is that she may be having dynamic obstruction (?mid cavitary). Now resolved on higher doses of MTP NSTEMI: Trop peaked at 0.6. S/p cath with PCI of mid LAD. Patent RCA and Cx stents. Bare metal stent used as although EGD was normal, the hematemesis remains unclear Hematemesis: normal CTA. EGD with gastritis but nothing to explain annmarie bleeding. Therefore a bare metal stent was placed. Systolic murmur: possible mild but hyperdynamic LV function and may have a component of dynamic obstruction CAD: PCI as above. Patent RCA and Cx stents HTN -continue ASA, statin -plavix 75mg daily -metoprolol 150mg BID -continue cozaar -increase to amlodipine 5mg BID -IV metoprolol 5mg PRN for chest pain -likely d/c in am Problems: Consultation Date/Type/Reason Admit Date/Time Apr 09, 2017 at 20:30 Initial Consult Date 04/10/17 Type of Consultation: Cardiology Referring Provider: NOLE BUNN MD 24 HR Interval Summary Free Text/Dictation SBP 190s yesterday. No chest pain. Wants to stay one more night Exam/Review of Systems Vital Signs Vitals Vital Signs Date Time Temp Pulse Resp B/P Pulse Ox O2 Delivery O2 Flow Rate FiO2 04/15/17 08:30 74 04/15/17 07:05 98.0 18 146/65 98 04/15/17 00:42 2.0 04/15/17 00:40 Nasal Cannula Intake and Output 04/14/17 04/14/17 04/15/17 15:00 23:00 07:00 Intake Total 600 ml 400 ml 500 ml Output Total 2000 ml Balance 600 ml 400 ml -1500 ml Exam Constitutional: alert, oriented Psych: no complaints Head: atraumatic, normocephalic Neck: No jvd Respiratory: crackles/rales (mild ), No clear to auscultation Cardiovascular: regular rate and rhythm, systolic murmur (3/6 STEPHEN), No edema Gastrointestinal: non-tender, soft Neurological: nl mental status, nl speech Results Result Diagram: 04/13/17 0441 04/13/17 0755 Medications Medications Current Medications Nitroglycerin (Nitroglycerin (Sl Tab) 0.4 Mg) 1 tab Q5M PRN SL CHEST PAIN Last administered on 04/13/17 06:53; Admin Dose 1 TAB; Start 04/09/17 at 21:00 Acetaminophen (Tylenol Tab) 650 mg Q6H PRN PO PAIN LEVEL 1-3 OR FEVER; Start at 21:00 Morphine Sulfate (morphine) 2 mg Q4H PRN IV PAIN LEVEL 7-10 Last administered on 04/15/17 00:33; Admin Dose 2 MG; Start 04/09/17 at 21:00 Docusate Sodium (Colace) 100 mg Q12H PRN PO CONSTIPATION Last administered on 20:59; Admin Dose 100 MG; Start 04/09/17 at 21:00 Bisacodyl (Dulcolax) 5 mg DAILY PRN PO CONSTIPATION; Start 04/09/17 at 21:00 Tramadol HCl (Ultram) 50 mg Q6 PRN PO pain; Start 04/09/17 at 22:30 Aspirin (Aspirin) 81 mg DAILY PO Last administered on 04/15/17 08:53; Admin Dose 81 MG; Start 04/10/17 at 09:00 Losartan Potassium (Cozaar) 100 mg DAILY PO Last administered on 04/15/17 08: 54; Admin Dose 100 MG; Start 04/09/17 at 23:00 Potassium Chloride (Klor-Con 10) 10 meq DAILY PO Last administered on 08:53; Admin Dose 10 MEQ; Start 04/10/17 at 09:00 Atorvastatin Calcium (Lipitor) 20 mg HS PO Last administered on 04/14/17 21:08 ; Admin Dose 20 MG; Start 04/10/17 at 21:00 Morphine Sulfate (morphine) 4 mg Q3H PRN IV CHEST PAIN Last administered on 01:16; Admin Dose 4 MG; Start 04/10/17 at 00:30 Ondansetron HCl (Zofran Inj) 4 mg Q4H PRN IV NAUSEA AND/OR VOMITING Last administered on 04/13/17 19:08; Admin Dose 4 MG; Start 04/10/17 at 00:30 Metoclopramide HCl (Reglan) 10 mg Q4H PRN IV vomiting Last administered on 04/13 20:59; Admin Dose 10 MG; Start 04/10/17 at 01:00 Pantoprazole (Protonix Iv) 40 mg DAILY@06 IV Last administered on 04/15/17 05: 43; Admin Dose 40 MG; Start 04/12/17 at 06:00 Hydralazine HCl (Apresoline) 10 mg Q6H PRN IV ELEVATED SYSTOLIC BP Last administered on 04/15/17 00:04; Admin Dose 10 MG; Start 04/12/17 at 05:00 Morphine Sulfate (morphine) 2 mg Q2H PRN IV FOR NON CARDIAC PAIN (4-10); Start 04/12/17 at 09:00 Clopidogrel Bisulfate (plaVIX) 75 mg DAILY PO Last administered on 04/15/17 08 :53; Admin Dose 75 MG; Start 04/13/17 at 09:00 Metoprolol Tartrate (Lopressor) 150 mg BID PO Last administered on 04/15/17 08 :55; Admin Dose 150 MG; Start 04/13/17 at 21:00 Metoprolol Tartrate (Lopressor) 5 mg [id number] PRN IV chest pain ; Start at 10:30 Amlodipine Besylate (Norvasc) 5 mg DAILY PO Last administered on 04/15/17 08: 56; Admin Dose 5 MG; Start 04/13/17 at 19:00 Simethicone (Mylicon) 80 mg Q6H PRN PO gas pain Last administered on 04/15/17 09:07; Admin Dose 80 MG; Start 04/14/17 at 13:00 CELESTE MC Apr 15, 2017 12:17
--- NOTE | 2017-04-15 14:08 | PN ---
Date/Time of Note Date/Time of Note DATE: 04/15/17 TIME: 14:07 Assessment/Plan VTE Prophylaxis VTE Prophylaxis Intervention: SCD's Lines/Catheters IV Catheter Type (from Nrs): Saline Lock Urinary Cath still in place: No Assessment/Plan Assessment/Plan 71 yo F presented with epigastric pain and chest discomfort, subsequently found to have elevated troponin. SP [facility] with PCI 7.13 #NSTEMI: PCI 7.13 by cards antiplatelet agents as per cards BP control as per cards statin #epigastric pain: EGD with gastritis/esophagitis -PPI as per GI, signed off likely dc home tomorrow AM Subjective 24 Hr Interval Summary Free Text/Dictation No more chest pain. Wants 1 more day in the hospital. Exam/Review of Systems Vital Signs Vitals Vital Signs Date Time Temp Pulse Resp B/P Pulse Ox O2 Delivery O2 Flow Rate FiO2 04/15/17 12:43 Nasal Cannula 1.0 04/15/17 12:26 98.0 65 18 154/96 99 Intake and Output 04/14/17 04/14/17 04/15/17 15:00 23:00 07:00 Intake Total 600 ml 400 ml 500 ml Output Total 2000 ml Balance 600 ml 400 ml -1500 ml Exam nad no mrg lungs clear abd soft no rashes Results Result Diagram: 04/13/17 0441 04/13/17 0755 Medications Medications Current Medications Nitroglycerin (Nitroglycerin (Sl Tab) 0.4 Mg) 1 tab Q5M PRN SL CHEST PAIN Last administered on 04/13/17 06:53; Admin Dose 1 TAB; Start 04/09/17 at 21:00 Acetaminophen (Tylenol Tab) 650 mg Q6H PRN PO PAIN LEVEL 1-3 OR FEVER; Start at 21:00 Morphine Sulfate (morphine) 2 mg Q4H PRN IV PAIN LEVEL 7-10 Last administered on 04/15/17 00:33; Admin Dose 2 MG; Start 04/09/17 at 21:00 Docusate Sodium (Colace) 100 mg Q12H PRN PO CONSTIPATION Last administered on 20:59; Admin Dose 100 MG; Start 04/09/17 at 21:00 Bisacodyl (Dulcolax) 5 mg DAILY PRN PO CONSTIPATION; Start 04/09/17 at 21:00 Tramadol HCl (Ultram) 50 mg Q6 PRN PO pain; Start 04/09/17 at 22:30 Aspirin (Aspirin) 81 mg DAILY PO Last administered on 04/15/17 08:53; Admin Dose 81 MG; Start 04/10/17 at 09:00 Losartan Potassium (Cozaar) 100 mg DAILY PO Last administered on 04/15/17 08: 54; Admin Dose 100 MG; Start 04/09/17 at 23:00 Potassium Chloride (Klor-Con 10) 10 meq DAILY PO Last administered on 08:53; Admin Dose 10 MEQ; Start 04/10/17 at 09:00 Atorvastatin Calcium (Lipitor) 20 mg HS PO Last administered on 04/14/17 21:08 ; Admin Dose 20 MG; Start 04/10/17 at 21:00 Morphine Sulfate (morphine) 4 mg Q3H PRN IV CHEST PAIN Last administered on 01:16; Admin Dose 4 MG; Start 04/10/17 at 00:30 Ondansetron HCl (Zofran Inj) 4 mg Q4H PRN IV NAUSEA AND/OR VOMITING Last administered on 04/13/17 19:08; Admin Dose 4 MG; Start 04/10/17 at 00:30 Metoclopramide HCl (Reglan) 10 mg Q4H PRN IV vomiting Last administered on 04/13 20:59; Admin Dose 10 MG; Start 04/10/17 at 01:00 Pantoprazole (Protonix Iv) 40 mg DAILY@06 IV Last administered on 04/15/17 05: 43; Admin Dose 40 MG; Start 04/12/17 at 06:00 Hydralazine HCl (Apresoline) 10 mg Q6H PRN IV ELEVATED SYSTOLIC BP Last administered on 04/15/17 00:04; Admin Dose 10 MG; Start 04/12/17 at 05:00 Morphine Sulfate (morphine) 2 mg Q2H PRN IV FOR NON CARDIAC PAIN (4-10); Start 04/12/17 at 09:00 Clopidogrel Bisulfate (plaVIX) 75 mg DAILY PO Last administered on 04/15/17 08 :53; Admin Dose 75 MG; Start 04/13/17 at 09:00 Metoprolol Tartrate (Lopressor) 150 mg BID PO Last administered on 04/15/17 08 :55; Admin Dose 150 MG; Start 04/13/17 at 21:00 Metoprolol Tartrate (Lopressor) 5 mg [id number] PRN IV chest pain ; Start at 10:30 Simethicone (Mylicon) 80 mg Q6H PRN PO gas pain Last administered on 04/15/17 09:07; Admin Dose 80 MG; Start 04/14/17 at 13:00 Amlodipine Besylate (Norvasc) 5 mg BID PO ; Start 04/15/17 at 21:00 NOEL BUNN MD Apr 15, 2017 14:08
[2017-04-15] MEDS: ATORVASTATIN 20 MG TAB PO SCH (20:35)
[2017-04-16] VITALS (9 sets, daily range): BP systolic 102–168; BP diastolic 72–77; PULSE 62–74; RESP 18–19
[2017-04-16] MEDS ORDERED: PANTOPRAZOLE (EC) 40 MG TAB PO SCH (06:00)
[2017-04-16] MEDS: ASPIRIN 81 MG TAB PO SCH (08:11)
[2017-04-16] MEDS: POTASSIUM CHLORIDE (SR) 10 MEQ TAB PO SCH (08:11)
[2017-04-16] MEDS: METOPROLOL 100 MG TAB PO SCH (08:12)
[2017-04-16] MEDS: CLOPIDOGREL 75 MG TAB PO SCH (08:12)
[2017-04-16] MEDS: AMLODIPINE 5 MG TAB PO SCH (08:13)
[2017-04-16] MEDS: LOSARTAN 50 MG TAB PO SCH (08:16)
[2017-04-16] MEDS ORDERED: FUROSEMIDE 20 MG TAB PO SCH (09:00)
[2017-04-16] MEDS ORDERED: POTASSIUM CHLORIDE 250 ML IVPB ONE (12:00)
--- NOTE | 2017-04-16 12:00 | PDOCDIS ---
Discharge Instructions CONDITION Patient Condition: Stable HOME CARE INSTRUCTIONS: Special Diet: VEGETARIAN, CARDIAC DIET ACTIVITY: Activity Restrictions: Slowly Increase Activity FOLLOW UP/APPOINTMENTS Follow-up Plan Please take your medicines as prescribed. Please follow-up with your primary doctor in the clinic in the next 1 week. CHRISTO FUENTES Apr 16, 2017 12:00
[2017-04-16] MEDS ORDERED: MYL80 PO (12:02)
[2017-04-16] MEDS ORDERED: METO-407 PO (12:02)
[2017-04-16] MEDS ORDERED: CLOP75TA28 PO (12:02)
[2017-04-16] MEDS ORDERED: AMLO-145 PO (12:02)
--- NOTE | 2017-04-16 12:08 | DS ---
Date/Time of Note Date/Time of Note DATE: 04/16/17 TIME: 12:03 Discharge Summary Admission/Discharge Info Admit Date/Time Apr 09, 2017 at 20:30 Discharge Date/Time Discharge Diagnosis Chest pain: improved NSTEMI: Trop peaked at 0.6. S/p cath with PCI of mid LAD. Patent RCA and Cx stents. Hematemesis: normal CTA. EGD with gastritis but nothing to explain annmarie bleeding. Therefore a bare metal stent was placed. Systolic murmur: possible mild but hyperdynamic LV function and may have a component of dynamic obstruction CAD: s/p PCI as above HTN Patient Condition: Stable Hx of Present Illness Chief complaint: Chest pain that started yesterday Patient is a 71-year-old female with coronary disease and hypertension who presents with chest pain. The patient was brought in by ambulance. She was given aspirin nitroglycerin by paramedics. The chest pain started today and is right-sided. She also mentioned that she was spitting up some blood. Upon my examination patient was complaining of chest pain again and was experiencing visible nausea and vomiting. She was given morphine 4 mg which provided her relief and Reglan for the nausea vomiting she subsequently improved. Stat troponin at that time was negative and an EKG was performed at that time as well which did not show any acute ST elevation changes on the EKG, there were some flipped T waves in a right bundle branch block which were very similar to the ones originally seen on EKG in the ED. She did have a QT prolongation. Allergies: NKDA Medications: See [facility] Course 71-year-old female with coronary disease and hypertension who presents with chest pain. The patient was brought in by ambulance. She was given aspirin nitroglycerin by paramedics. The chest pain started today and is right-sided. She also mentioned that she was spitting up some blood. Upon my examination patient was complaining of chest pain again and was experiencing visible nausea and vomiting. She was given morphine 4 mg which provided her relief and Reglan for the nausea vomiting she subsequently improved. Stat troponin at that time was negative and an EKG was performed at that time as well which did not show any acute ST elevation changes on the EKG, there were some flipped T waves in a right bundle branch block which were very similar to the ones originally seen on EKG in the ED. She did have a QT prolongation. So patient was admitted to telemetry floor, she had an echo that showed hyperdynamic function and no wall motion abnormalities to suggest that the stent is occluded. EKG showed mild global ischemia. She still has an aortic gradient of 3 m/s but the valve does not appear to be significantly stenosed and though no clear obstruction is seen on echo. Patient found with NSTEMI: Trop peaked at 0.6. S/p cath with PCI of mid LAD. Patent RCA and Cx stents. Bare metal stent used, but patient also had some hematemesis: normal CTA was found subsequently. EGD showed gastritis but nothing to explain annmarie bleeding. Therefore a bare metal stent was placed. Patient also found with systolic murmur: possible mild but hyperdynamic LV function and may have a component of dynamic obstruction. Over the course of her hospital stay her chest pain symptoms improved, she was able to ambulate, tolerated p.o. diet. She had some blood pressure medicines adjusted secondary to some slightly elevated blood pressure that was stable on the day of discharge , and will be discharged home today in improved condition. Please see med reconciliation list for list of discharge medications. Home Meds Active Scripts Simethicone* (Mylicon*) 80 Mg Tab, 80 MG PO Q6H Y for gas pain, #60 TAB 2 Refills Prov:CHRISTO FUENTES S. 04/16/17 Metoprolol Tartrate* (Lopressor*) 100 Mg Tablet, 150 MG PO BID, #60 TAB 4 Refills Prov:CHRISTO FUENTES S. 04/16/17 Amlodipine Besylate* (Amlodipine Besylate*) 5 Mg Tablet, 5 MG PO BID, #60 TAB 4 Refills Prov:CHRISTO FUENTES S. 04/16/17 Clopidogrel Bisulfate (Clopidogrel) 75 Mg Tablet, 75 MG PO DAILY, #30 TAB 8 Refills Prov:CHRISTO FUENTES S. 04/16/17 Reported Medications Potassium Chloride (Klor-Con) 10 Meq Tablet.sa, 10 MEQ PO DAILY, TAB.SA 04/10/17 Losartan Potassium* (Losartan Potassium*) 100 Mg Tablet, 100 MG PO DAILY, TAB 04/10/17 Furosemide* (Furosemide*) 20 Mg Tablet, 20 MG PO DAILY, #60 TAB 04/10/17 Atorvastatin Calcium* (Atorvastatin Calcium*) 20 Mg Tablet, 20 MG PO QHS, #30 TAB 04/10/17 Aspirin* (Aspirin* EC) 81 Mg Tablet.dr, 81 MG PO DAILY, TAB 04/10/17 Discontinued Reported Medications Diltiazem Hcl* (Diltiazem XT) 180 Mg Capsule.er, 90 MG PO DAILY, #30 CAP 04/10/17 Primary Care Provider CHRISTO Recio Apr 16, 2017 12:08
--- NOTE | 2017-04-16 13:23 | CONS ---
Date/Time of Note Date/Time of Note DATE: 04/16/17 TIME: 13:22 Assessment/Plan Assessment/Plan Chief Complaint/Hosp Course Chest pain: Recurrent chest pain despite PCI of LAD. No other lesions to revascularize. Echo with hyperdynamic function and no wall motion abnormalities to suggest that the stent is occluded. EKG showed mild global ischemia. She still has an aortic gradient of 3 m/s but the valve does not appear to be significantly stenosed and though no clear obstruction is seen on echo, my suspicion is that she may be having dynamic obstruction (?mid cavitary). Now resolved on higher doses of MTP NSTEMI: Trop peaked at 0.6. S/p cath with PCI of mid LAD. Patent RCA and Cx stents. Bare metal stent used as although EGD was normal, the hematemesis remains unclear Hematemesis: normal CTA. EGD with gastritis but nothing to explain annmarie bleeding. Therefore a bare metal stent was placed. Systolic murmur: possible mild but hyperdynamic LV function and may have a component of dynamic obstruction CAD: PCI as above. Patent RCA and Cx stents HTN -continue ASA, statin -plavix 75mg daily for at least one month, preferably 1 year -metoprolol 150mg BID -continue cozaar -amlodipine 5mg BID -ok for d/c with above meds Problems: Consultation Date/Type/Reason Admit Date/Time Apr 09, 2017 at 20:30 Initial Consult Date 04/10/17 Type of Consultation: Cardiology Referring Provider: NOEL BUNN MD 24 HR Interval Summary Free Text/Dictation Doing well. Wants to go home. Exam/Review of Systems Vital Signs Vitals Vital Signs Date Time Temp Pulse Resp B/P Pulse Ox O2 Delivery O2 Flow Rate FiO2 04/16/17 12:12 62 04/16/17 11:05 97.8 18 158/76 98 04/16/17 08:26 Nasal Cannula 1.0 Intake and Output 04/15/17 04/15/17 04/16/17 15:00 23:00 07:00 Intake Total 750 ml 600 ml Output Total 1500 ml 1200 ml Balance -750 ml -600 ml Exam Constitutional: alert, oriented Psych: no complaints Head: atraumatic, normocephalic Neck: No jvd Respiratory: clear to auscultation, No crackles/rales Cardiovascular: regular rate and rhythm, systolic murmur (3/6 STEPHEN), No edema Gastrointestinal: non-tender, soft Extremities: normal pulses Neurological: nl mental status, nl speech Results Result Diagram: 04/13/17 0441 04/13/17 0755 Medications Medications Current Medications Nitroglycerin (Nitroglycerin (Sl Tab) 0.4 Mg) 1 tab Q5M PRN SL CHEST PAIN Last administered on 04/13/17 06:53; Admin Dose 1 TAB; Start 04/09/17 at 21:00 Acetaminophen (Tylenol Tab) 650 mg Q6H PRN PO PAIN LEVEL 1-3 OR FEVER; Start at 21:00 Morphine Sulfate (morphine) 2 mg Q4H PRN IV PAIN LEVEL 7-10 Last administered on 04/15/17 00:33; Admin Dose 2 MG; Start 04/09/17 at 21:00 Docusate Sodium (Colace) 100 mg Q12H PRN PO CONSTIPATION Last administered on 20:59; Admin Dose 100 MG; Start 04/09/17 at 21:00 Bisacodyl (Dulcolax) 5 mg DAILY PRN PO CONSTIPATION; Start 04/09/17 at 21:00 Tramadol HCl (Ultram) 50 mg Q6 PRN PO pain; Start 04/09/17 at 22:30 Aspirin (Aspirin) 81 mg DAILY PO Last administered on 04/16/17 08:11; Admin Dose 81 MG; Start 04/10/17 at 09:00 Losartan Potassium (Cozaar) 100 mg DAILY PO Last administered on 04/16/17 08: 16; Admin Dose 100 MG; Start 04/09/17 at 23:00 Potassium Chloride (Klor-Con 10) 10 meq DAILY PO Last administered on 08:11; Admin Dose 10 MEQ; Start 04/10/17 at 09:00 Atorvastatin Calcium (Lipitor) 20 mg HS PO Last administered on 04/15/17 20:35 ; Admin Dose 20 MG; Start 04/10/17 at 21:00 Morphine Sulfate (morphine) 4 mg Q3H PRN IV CHEST PAIN Last administered on 01:16; Admin Dose 4 MG; Start 04/10/17 at 00:30 Ondansetron HCl (Zofran Inj) 4 mg Q4H PRN IV NAUSEA AND/OR VOMITING Last administered on 04/13/17 19:08; Admin Dose 4 MG; Start 04/10/17 at 00:30 Metoclopramide HCl (Reglan) 10 mg Q4H PRN IV vomiting Last administered on 04/13 20:59; Admin Dose 10 MG; Start 04/10/17 at 01:00 Morphine Sulfate (morphine) 2 mg Q2H PRN IV FOR NON CARDIAC PAIN (4-10); Start 04/12/17 at 09:00 Clopidogrel Bisulfate (plaVIX) 75 mg DAILY PO Last administered on 04/16/17 08 :12; Admin Dose 75 MG; Start 04/13/17 at 09:00 Metoprolol Tartrate (Lopressor) 150 mg BID PO Last administered on 04/16/17 08 :12; Admin Dose 150 MG; Start 04/13/17 at 21:00 Metoprolol Tartrate (Lopressor) 5 mg [id number] PRN IV chest pain ; Start at 10:30 Simethicone (Mylicon) 80 mg Q6H PRN PO gas pain Last administered on 04/15/17 09:07; Admin Dose 80 MG; Start 04/14/17 at 13:00 Amlodipine Besylate (Norvasc) 5 mg BID PO Last administered on 04/16/17 08:13 ; Admin Dose 5 MG; Start 04/15/17 at 21:00 Pantoprazole 40 mg 40 mg DAILY@06 PO Last administered on 04/16/17 05:39; Admin Dose 40 MG; Start 04/16/17 at 06:00 Potassium Chloride (KCl 40 MEQ/250 ML NS) 250 ml @ 62.5 mls/hr ONCE ONCE IVPB Last administered on 04/16/17 12:55; Admin Dose 62.5 MLS/HR; Start 04/16/17 at 12:00; Stop 04/16/17 at 15:59 CELESTE CM Apr 16, 2017 13:23
[2017-04-16] MEDS ORDERED: hydrALAzine 20 MG INJ IV ONE ×2 (18:30)
== END 2017-04-16 20:03 | disposition home or self-care (01) | DRG 249 ==
LOC: E/R 18:37 → MS4 20:30 → ICU 04-12 08:45 → TEL 04-14 14:30
PROVIDERS: ADMIT Family Medicine; ATTEND Family Medicine
PROC: 0DJ08ZZ Inspection of Upper Intestinal Tract, Via Natural or Artificial Opening Endoscopic (ICD-10-PCS; 2017-04-11)
PROC: B2111ZZ Fluoroscopy of Multiple Coronary Arteries using Low Osmolar Contrast (ICD-10-PCS; 2017-04-12)
PROC: 02703DZ Dilation of Coronary Artery, One Artery with Intraluminal Device, Percutaneous Approach (ICD-10-PCS; principal; 2017-04-12 07:30)
PROC: 4A023N7 Measurement of Cardiac Sampling and Pressure, Left Heart, Percutaneous Approach (ICD-10-PCS; 2017-04-12 07:30)
DX: I21.4 Non-ST elevation (NSTEMI) myocardial infarction (principal); K92.0 Hematemesis; D64.9 Anemia, unspecified; E87.1 Hypo-osmolality and hyponatremia; I25.10 Atherosclerotic heart disease of native coronary artery without angina pectoris; I10 Essential (primary) hypertension; K29.70 Gastritis, unspecified, without bleeding; K20.9 Esophagitis, unspecified; K29.80 Duodenitis without bleeding; I35.0 Nonrheumatic aortic (valve) stenosis; Z95.5 Presence of coronary angioplasty implant and graft; Z79.82 Long term (current) use of aspirin
CPT/HCPCS: 36415; 71010; 71275; 80048; 80053; 80061; 81001; 82533; 82550; 82553; 83036; 83735; 83930; 83935; 84300; 84443; 84484; 85014; 85018; 85025; 85610; 85730; 86850; 86900; 86901; 87086; 92928; 93005; 93306; 93308; 93458; 96374; 96375; C1725; C1769; C1887; C9113; J0360; J1644; J2185; J2250; J2270; J2405; J2765; J3010; J3480; J7030; J7040; Q9967

== ENCOUNTER 2017-10-20 23:35 | Emergency (ER) | END 2017-10-21 02:30 | disposition home or self-care (01) ==

== ENCOUNTER 2017-12-15 06:57 | Emergency (ER) | END 2017-12-15 08:32 | disposition home or self-care (01) ==